=== PATIENT | female | born 1955 | race Caucasian/White ===

== ENCOUNTER 2016-05-02 16:53 | Inpatient (IN) ==
[~2016-05-02 16:53] MED LIST: *HR* Etomidate 20 MG/10 ML AMPUL IVP ONE; *HR* Rocuronium Bromide 50 MG/5 ML VIAL IVC ONE
[2016-05-02] MEDS ORDERED: Propofol 500 MG/50 ML INFUS..BTL ONE (17:09)
[2016-05-02] MEDS ORDERED: Propofol 500 MG/50 ML INFUS..BTL IVC SCH (17:15)
--- NOTE | 2016-05-02 17:16 | Emergency Department Note ---
START Narrative - START START: I examined this patient and my medical decision-making was reviewed with the ORDER CHECKER PACKER PROCESSER/PA/Advanced Practice Nurse/Resident Physician. I agree with the documented findings, disposition and treatment plan as described except to the extent set forth below. ED attending note: Patient seen with emergency medicine resident Dr. Mcguire. Please see a copy of his note for details of the H&P, evaluation, management and disposition of this patient. We independently had [id number] contact with the patient Briefly: 60-year-old female full code by EMS from local [facility] for respiratory distress/arrest. Patient came in in the end stages of respiratory distress from COPD flare at this point which is presumed. Eyes rolling back to the head with decreasing respiratory drive at [place] decreasing sats. Dr. Mcguire emergently performed rapid sequence and abduction intubation. Using a 7.0 endotracheal tube first attempt using direct sedation was unsuccessful secondary attempt using a kaleidoscope was successful with position confirmed both by auscultation and end-tidal CO2 detector. Labs EKG portable chest x-ray pending. ICU admission anticipated. Provided 45 minutes of critical care services for this patient at exclusion of separately billable services such as intubation. Patient critical, prognosis uncertain.
[2016-05-02] MEDS ORDERED: Levofloxacin 750 MG/150 ML 750 MG/150 ML BAG IVPB ONE (17:20)
[2016-05-02] MEDS ORDERED: Vancomycin 1,000 MG in D5% in Water 250 ML IVPB ONE (17:20)
[2016-05-02] MEDS ORDERED: Cefepime HCl 1,000 MG in D5% in Water (Mini-Bag+) 100 ML IVPB ONE (17:21)
[2016-05-02 17:32] LABS: Bilirubin,Urine Small (Negative); Blood,Urine Large (Negative); Clarity,Urine Turbid (Clear); Color,Urine Dark Yellow (Yellow); Glucose,Urine (UA) Normal (Normal); Ketones,Urine Negative (Negative); Leukocyte Esterase,Urine Negative (Negative); Nitrite,Urine Negative (Negative); PH,Urine 5.5 pH Units (5.0-8.0); Protein,Urine 100 mg/dL (Neg-Trace); Specific Gravity,Urine 1.016 (1.010-1.025); Urobilinogen,Urine Normal (Normal)
[2016-05-02] MEDS: 0.9 % Sodium Chloride 1,000 ML IVC SCH ×2 (17:33→21:32)
--- NOTE | 2016-05-02 17:33 | Emergency Department Note ---
Disposition Clinical Impression: Respiratory acidosis Respiratory failure Qualifiers: Chronicity: acute Respiratory failure complication: hypoxia Qualified Code(s): J96.01 - Acute respiratory failure with hypoxia Sepsis Qualifiers: Sepsis type: sepsis due to unspecified organism Qualified Code(s): A41.9 - Sepsis, unspecified organism Pneumonia Qualifiers: Pneumonia type: due to unspecified organism Laterality: unspecified laterality Lung location: unspecified part of lung Qualified Code(s): J18.9 - Pneumonia, unspecified organism Disposition: Admitted As Inpatient Condition: Critical Referrals: NO,PCP [Primary Care Provider] - Forms: ED Satisfaction Letter General Adult HPI - General Chief complaint: ED Shortness of Breath/Dyspnea Stated complaint: SOB/FILIBERTO Time Seen by Provider: 05/02/16 17:09 Source: EMS Mode of arrival: EMS Limitations: no limitations Nursing Notes Reviewed: Yes Vital Signs Reviewed: Yes - History of Present Illness HPI Narrative: 60-year-old female from a local nursing facility who reportedly was diagnosed with pneumonia this morning and started on Levaquin. According to EMS report she had a relatively rapid decompensation of her respiratory function and on checking her SPO2 it was 70%. She was in respiratory distress on the ride over. [facility] due to inability to care for herself with dementia. It appears the only medications that she takes are omeprazole, tramadol, hydroxychloroquine, Levaquin. She was initially able to nod her head to answer questions but could not answer. She indicated she is a full code and that she would like to be intubated if needed. Pain Scale: 0 Consistency: constant Improves with: nothing Worsens with: nothing Treatments Prior to Arrival: none - Related Data Home Medications Medication Instructions Recorded Confirmed Acetaminophen [Tylenol] 500 mg PO TID PRN 05/02/16 05/02/16 Calcium Carbonate/Vitamin D3 1 each PO DAILY 05/02/16 05/02/16 [Calcium 600-Vit D3 400 Tablet] GuaiFENesin/Dextromethorphan 5 ml PO Q6H 05/02/16 05/02/16 [Tussin Dm Syrup] HYDROcodone/Acet 5/325 mg [[place] 1 tab PO Q6H 05/02/16 05/02/16 5-325 mg] Hydroxychloroquine [Plaquenuil] 200 mg PO DAILY 05/02/16 05/02/16 Levofloxacin [Levofloxacin] 500 mg PO DAILY 05/02/16 05/02/16 OLANZapine [Olanzapine] 2.5 mg PO QAM 05/02/16 05/02/16 Omeprazole [PriLOSEC] 20 mg PO DAILY 05/02/16 05/02/16 TraMADol [Ultram] 50 mg PO TID 05/02/16 05/02/16 Tramadol HCl [Tramadol HCl] 50 mg PO Q4H PRN 05/02/16 05/02/16 Allergies Allergy/AdvReac Type Severity Reaction Status Date / Time Penicillins Allergy Hives Verified 11/03/15 02:06 Limitations: ROS unobtainable due to patients medical condition Past Medical History - Past Medical History Medical history: Reports: arthritis, COPD, CVA, dementia, GERD, hypertension, liver disease, RA Surgical history: Reports: hip replacement, hysterectomy, knee replacement, orthopedic, other (Bilateral patellar replacement), other (IVC filter) Psychiatric history: Reports: schizophrenia SENIOR COMPUTER SPECIALIST history: Reports: no SENIOR COMPUTER SPECIALIST history, bilateral tubal ligation - Social History Smoking Status: Former smoker Smokeless Tobacco Status: No Alcohol use: Reports: none Drug use: Reports: none Physical Exam - General Limitations: no limitations General appearance: alert, in distress - Head Head exam: atraumatic - Eye Eye exam: Present: normal appearance - ENT ENT exam: normal exam - Neck Neck exam: Present: normal inspection - Chest Chest inspection: Present: normal inspection - Respiratory Respiratory exam: Present: other (Respiratory distress with tachypnea and coarse lung sounds on the left. Accessory muscle use. No significant wheezes are present.) - Cardiovascular Cardiovascular exam: Present: normal rhythm, tachycardia - Abdominal Exam Abdominal exam: Present: soft, Non-Tender - Extremities Exam Extremities exam: Present: normal inspection - Psychiatric Psychiatric exam: Present: anxious - Skin Skin exam: Present: warm, dry Course Course Narrative: Due to the respiratory distress she was immediately intubated on arrival. Her SPO2 on a nonrebreather was in the 80s and she was fatigued and slowing down. I have concern for sepsis and I have initiated empiric antibiotic's and a 30 mils perkg bolus of saline. Physical exam otherwise unrevealing. She was intubated with 2 attempts. Central line placed by myself. Blood draw performed by myself. - Reevaluation(s) Reevaluation #1: HR continues to improve. O2 sats are still 100% while on 50% FIO2. Minimal vent settings otherwise. Antibiotics are all going. Accepted by Jim to the ICU. BP maintains stable at 115 systolic. She is in improved condition. Vital Signs Temperature 99.0 F 05/02/16 16:54 Pulse Rate 119 05/02/16 16:54 Respiratory Rate 38 05/02/16 16:54 Blood Pressure 155/101 05/02/16 16:54 O2 Sat by Pulse Oximetry 86 L 05/02/16 16:54 Temperature 97.1 F L 05/02/16 17:32 Pulse Rate 119 05/02/16 16:54 Respiratory Rate 12 05/02/16 17:07 Blood Pressure 146/88 05/02/16 17:07 O2 Sat by Pulse Oximetry 100 05/02/16 17:28 Oxygen Delivery Oxygen Delivery Aerosol Mask Procedures - Central Line Placement Left IJ Central Line Inserted*: Yes Central Line Insertion: emergent Procedural Pause: assemble equipment and verify supplies, perform hand hygiene Patient Placed on Monitor/Pulse Ox: Yes During the Procedure: clinician is wearing sterile gloves, cap, mask,& gown during insertion, sterile field and sterile technique are maintained, patient's face is covered with drape or mask and wearing a cap, everyone in room is wearing a mask Central Line Prep: Chlorhexidine scrub Prep the Procedure Site: apply chloraprep to the skin using a back and forth scrubbing motion, apply chloraprep for 30 seconds (upper body), 1-2 min ( femoral sites), allow prep to dry, drape the patient with a full body drape Local Anesthetic: lidocaine 1% Amount of anesthesia used (mL): 2 Ultrasound Used for Placement: Yes Central Line Lumen Inserted: triple Post Procedure: sutured in place, good blood return, all ports aspirated, flushed, capped, sterile dressing applied, guide wire removed and visualized Post Procedure X-Ray: tip of catheter in good position, no pneumothorax seen Patient Tolerated Procedure: well, no complications Complications: none - Intubation sedative: Etomidate paralytic: Rocuronium Laryngoscope: Kline (4) ET Tube Size: 7 ET Tube Uncuffed: No Tube Secured Depth (cm): 23 Tube Secured Location: lips Tube Placement Confirmation: visualized tube passing through cords, equal breath sounds bilaterally, no breath sounds over epigastrium, confirmation by capnometry Patient Tolerated Procedure: no complications Medical Decision Making - Medical Records Medical records reviewed: Yes I reviewed the patient's medical records. - Lab Data Result diagrams: 05/02/16 17:44 Lab Results 05/02/16 05/02/16 05/02/16 Range/Units 17:25 17:44 17:44 PT 12.3 H (9.4-12.1) Seconds INR 1.1 APTT 46.7 H (26.0-36.0) Seconds Sodium 132 L (136-145) mEq/L Potassium 4.4 (3.5-4.5) mEq/L Chloride 105 (98-109) mEq/L Carbon Dioxide 15 L (19-29) mEq/L BUN 14 (7-20) mg/dL Creatinine 0.61 (0.57-1.11) mg/dL Est GFR ( Amer) > 60 (> 60) Est GFR (Non-Af Amer) > 60 (> 60) BUN/Creatinine Ratio 23 (6-26) Glucose 138 H (70-99) mg/dL Calculated Osmolality 277 L (280-300) Calcium 9.1 (8.6-10.8) mg/dL Urine Color Dark Yellow (Yellow) Urine Clarity Turbid A (Clear) Urine pH 5.5 (5.0-8.0) pH Units Ur Specific [place] 1.016 (1.010-1.025) Urine Protein 100 H (Neg-Trace) mg/dL Urine Glucose (UA) Normal (Normal) mg/dL Urine Ketones Negative (Negative) mg/dL Urine Blood Large H (Negative) Urine Nitrite Negative (Negative) Urine Bilirubin Small H (Negative) Urine Urobilinogen Normal (Normal) mg/dL Ur Leukocyte Esterase Negative (Negative) Urine Microscopic RBC TNTC H (0-3) per hpf Urine Microscopic WBC 3-5 H (0-3) per hpf Ur Squamous Epith Cells Many H (None-Few) per lpf Ur Renal Epithelial Cell Few (None-Few) per hpf Urine Bacteria None Seen (None-Few) per hpf Hyaline Casts Many H (None-Few) per lpf Ur Culture Indicated? NO (NO)
[2016-05-02 17:34] LABS: Bacteria,Urine None Seen per hpf (None-Few); RBC,Urine TNTC per hpf (0-3); Squamous Epithelial Cell,Urine Many per lpf (None-Few)
[2016-05-02 17:44] LABS: Hyaline Casts,Urine Many per lpf (None-Few); Renal Epithelial Cells,Urine Few per hpf (None-Few)
[2016-05-02 18:00] LABS: INR 1.1; Prothrombin Time 12.3 Seconds (9.4-12.1)
[2016-05-02 18:03] LABS: Activated Partial Thrombo Time 46.7 Seconds (26.0-36.0)
[2016-05-02 18:09] LABS: BUN/Creatinine Ratio 23 (6-26); Blood Urea Nitrogen 14 mg/dL (7-20); Calcium 9.1 mg/dL (8.6-10.8); Carbon Dioxide 15 mEq/L (19-29); Chloride 105 mEq/L (98-109); Glucose 138 mg/dL (70-99); Osmolality,Calculated 277 (280-300); Potassium 4.4 mEq/L (3.5-4.5); Sodium 132 mEq/L (136-145); eGFR For African Americans > 60 (> 60); eGFR For Non-African Americans > 60 (> 60)
[2016-05-02 18:11] LABS: Albumin 2.6 g/dL (3.5-5.0); Albumin/Globulin Ratio 0.4 (1.1-2.2); Bilirubin,Direct 1.7 mg/dL (0.0-0.5); Bilirubin,Indirect 0.5 mg/dL (0.0-1.2); Bilirubin,Total 2.2 mg/dL (0.2-1.2); Globulin 6.4 g/dL (2.4-3.5); Magnesium 1.7 mg/dL (1.6-2.6); Phosphorous 5.1 mg/dL (2.3-4.7)
[2016-05-02 18:11] LABS: Hematocrit 36.4 % (35.3-44.9); Mean Corpuscular HGB Conc 30.2 g/dL (31.6-35.5); Mean Corpuscular Hemoglobin 27.5 pg (28.0-33.3); Platelet Count 238 K/mcL (140-400); Red Cell Distribution Width 14.7 % (11.5-14.5)
[2016-05-02 18:12] LABS: VBG HCO3 19.4 mEq/L (21-27)
[2016-05-02 18:13] LABS: VBG PH 7.07 pH Units (7.32-7.42)
[2016-05-02 18:22] LABS: ABG Base Excess -10.7 mEq/L (-2.0 to 3.0); ABG HCO3 19.9 mEQ/L (21-27); ABG Oxygen Saturation 88 % (95-98); ABG PCO2 67 mmHg (35-45); ABG PO2 76 mmHg (85-104)
[2016-05-02 18:23] LABS: Blood Gas FiO2 50 %
[2016-05-02 18:24] LABS: ABG PH 7.08 pH Units (7.32-7.45)
[2016-05-02 18:38] LABS: Eosinophils # 0.5 K/mcL (0.0-0.6); Lymphocytes # 0.5 K/mcL (0.6-4.6); Monocytes # 0.8 K/mcL (0.0-1.3); Neutrophils # 2.9 K/mcL (1.6-8.9)
[2016-05-02 18:40] LABS: Platelet Estimate Normal (Normal)
[2016-05-02 19:05] LABS: ABG Base Excess -10.3 mEq/L (-2.0 to 3.0); ABG HCO3 18.2 mEQ/L (21-27); ABG Oxygen Saturation 87 % (95-98); ABG PCO2 51 mmHg (35-45); ABG PO2 68 mmHg (85-104); ABG TCO2 19.8 mEq/L (20-26); Blood Gas FiO2 50 %
[2016-05-02 19:06] LABS: ABG PH 7.16 pH Units (7.32-7.45)
[2016-05-02] MEDS ORDERED: *HR* Midazolam HCl 2 MG/2 ML VIAL IVP ONE (19:18)
[2016-05-02] MEDS ORDERED: *HR* Midazolam HCl 2 MG/2 ML VIAL ONE (19:24)
[2016-05-02] MEDS ORDERED: Naloxone 0.4 MG/ML INJ IVP PRN (20:39)
[2016-05-02] MEDS ORDERED: Lacri-Lube 3.5 GM TUBE BOTH EYES PRN (20:43)
[2016-05-02] MEDS ORDERED: 0.9 % Sodium Chloride 1,000 ML ONE (21:07)
[2016-05-02] MEDS ORDERED: 0.9 % Sodium Chloride 500 ML ONE (21:12)
--- NOTE | 2016-05-02 21:17 | Internal Med History&Physical ---
Date of Encounter: 05/02/16 Time of Encounter: 20:10 Assessment and Plan (1) Acute respiratory distress syndrome (ARDS) Current visit: Yes Status: Acute Patient has pulmonary opacities consistent with pulmonary edema on chest x-ray. BNP is normal. CVP is 6 - will Keep CVP at 4-8. PaO2/FiO2 is 295 (Mild ARDS per Tyler criteria). Start on low tidal volume ventilation, with 6 ml/Kg. Treat suspected pneumonia with antibiotics. Will request pulmonary consultation for further management (2) Acute respiratory failure Current visit: Yes Status: Acute Due to pneumonia/ARDS/pulmonary edema. Patient is intubated and is on mechanical ventilation. Qualifiers: Respiratory failure complication: hypoxia and hypercapnia Qualified Code(s) : J96.01 - Acute respiratory failure with hypoxia; J96.02 - Acute respiratory failure with hypercapnia (3) Pneumonia Current visit: Yes Status: Acute Will treat her for healthcare associated pneumonia. Patient is on levofloxacin , cefepime and vancomycin. Vancomycin dosing per pharmacy. Requested sputum cultures / blood cultures. CRP and procalcitonin requested. Qualifiers: Pneumonia type: due to unspecified organism Laterality: right Lung location: lower lobe of lung Qualified Code(s): J18.1 - Lobar pneumonia, unspecified organism (4) Sepsis Current visit: Yes Status: Acute Secondary to pneumonia. Treat with antibiotics Qualifiers: Sepsis type: sepsis due to unspecified organism Qualified Code(s): A41.9 - Sepsis, unspecified organism (5) Rheumatoid arthritis involving both hands with positive rheumatoid factor Current visit: Yes Status: Chronic Will resume home medications (6) Acidosis, metabolic, with respiratory acidosis Current visit: Yes Status: Acute (7) Abnormal LFTs Current visit: Yes Status: Chronic Pt has chronic elevation of Alkaline phosphatase - possibly related to RA. Monitor (8) DVT prophylaxis Current visit: Yes Status: Acute subQ Heparin Internal Medicine - H&P: HPI Chief complaint: Shortness of breath Admitted From: Emergency Dept Plans for Post Hospital Care: [facility] [employer] [facility] History of present illness: Ms. Leon is a 60-year-old female with PMH significant for COPD, CVA, dementia , schizophrenia, GERD, hypertension, liver disease, RA and a resident of long term. She is intubated and mechanically ventilated at the time of my evaluation and is not able to give clinical details. Per the ER note, was diagnosed to have pneumonia earlier in the day and started on Levaquin. . According to EMS report she had a relatively rapid decompensation of her respiratory function and on checking her SPO2 it was 70%. In the ER, She was intubated and started on mechanical ventilation. She was given Levaquin, vancomycin, and cefepime for suspected pneumonia. She is admitted to intensive care unit, for further management. Pt is critically ill and critical care time spent for assessment/management and stabilization is about 65 minutes Past Med Surg Social Fam HX - Past Medical History Medical history: arthritis, COPD, CVA, dementia, GERD, hypertension, liver disease, RA Psychiatric history: schizophrenia - Past Surgical History Surgical History: hip replacement, hysterectomy, knee replacement, orthopedic, other (Bilateral patellar replacement), other (IVC filter) - Social History Smoking Status: Former smoker Smokeless Tobacco Status: No Alcohol use: none Drug use: none - Family History Mother Adopted: No Living Status: Father Adopted: No Living Status: Internal Medicine - H&P: Meds Acetaminophen [Tylenol] 500 mg PO TID PRN 05/02/16 [History] Calcium Carbonate/Vitamin D3 [Calcium 600-Vit D3 400 Tablet] 1 each PO DAILY 12/08 [History] GuaiFENesin/Dextromethorphan [Tussin Dm Syrup] 5 ml PO Q6H 05/02/16 [History] HYDROcodone/Acet 5/325 mg [[place] 5-325 mg] 1 tab PO Q6H 05/02/16 [History] Hydroxychloroquine [Plaquenuil] 200 mg PO DAILY 05/02/16 [History] Levofloxacin [Levofloxacin] 500 mg PO DAILY 05/02/16 [History] OLANZapine [Olanzapine] 2.5 mg PO QAM 05/02/16 [History] Omeprazole [PriLOSEC] 20 mg PO DAILY 05/02/16 [History] TraMADol [Ultram] 50 mg PO TID 05/02/16 [History] Tramadol HCl [Tramadol HCl] 50 mg PO Q4H PRN 05/02/16 [History] Allergies Penicillins Allergy (Verified 11/03/15 02:06) Hives ROS unobtainable: due to endotracheal tube - Constitutional Vitals: Temp Pulse Resp BP Pulse Ox 97.1 F L 114 15 95/66 94 L 05/02/16 17:32 05/02/16 18:23 05/02/16 19:47 05/02/16 19:47 05/02/16 19:47 Exam: General: Sedated and intubated and is on mechanical ventilation HEENT: intubated and is on mechanical ventilation. No scleral icterus Neck: No obvious neck swellings Lungs: Bilateral air entry present Cardiac: Regular rate and rhythm. No significant murmurs Abdomen: Soft. Bowel sounds present Genitourinary: lafleur catheter present Neurological: Sedated Psych: Sedated Extremities: Multiple deformities of the fingers and toes - suggestive of rheumatoid arthritis. Multiple scratch church on both lower extremities Skin: Multiple scratch church on both lower extremities Internal Med - H&P Results - Labs CBC & Chem 7: 05/03/16 05:15 05/03/16 05:15 Labs: Laboratory Results - last 24 hr 05/02/16 05/02/16 05/02/16 17:25 17:44 17:44 WBC RBC Hgb Hct MCV MCH MCHC RDW Plt Count MPV Seg Neutrophils % Band Neutrophils % Lymphocytes % Monocytes % Eosinophils % Metamyelocytes % Myelocytes % Neutrophils # Lymphocytes # Monocytes # Eosinophils # Platelet Estimate PT INR APTT ABG pH ABG pCO2 ABG pO2 ABG HCO3 ABG Total CO2 ABG O2 Saturation ABG Base Excess VBG pH VBG pCO2 VBG pO2 VBG HCO3 Blood Gas Modality Inspired O2 Sodium 132 L Potassium 4.4 Chloride 105 Carbon Dioxide 15 L BUN 14 Creatinine 0.61 Est GFR ( Amer) > 60 Est GFR (Non-Af Amer) > 60 BUN/Creatinine Ratio 23 Glucose 138 H Calculated Osmolality 277 L Lactic Acid Calcium 9.1 Phosphorus Magnesium Total Bilirubin Direct Bilirubin Indirect Bilirubin AST ALT Alkaline Phosphatase Troponin I 0.03 C-Reactive Protein B-Natriuretic Peptide Serum Total Protein Albumin Globulin Albumin/Globulin Ratio Urine Color Dark Yellow Urine Clarity Turbid A Urine pH 5.5 Ur Specific [place] 1.016 Urine Protein 100 H Urine Glucose (UA) Normal Urine Ketones Negative Urine Blood Large H Urine Nitrite Negative Urine Bilirubin Small H Urine Urobilinogen Normal Ur Leukocyte Esterase Negative Urine Microscopic RBC TNTC H Urine Microscopic WBC 3-5 H Ur Squamous Epith Cells Many H Ur Renal Epithelial Cell Few Urine Bacteria None Seen Hyaline Casts Many H Ur Culture Indicated? NO 05/02/16 05/02/16 05/02/16 17:44 17:44 17:44 WBC RBC Hgb Hct MCV MCH MCHC RDW Plt Count MPV Seg Neutrophils % Band Neutrophils % Lymphocytes % Monocytes % Eosinophils % Metamyelocytes % Myelocytes % Neutrophils # Lymphocytes # Monocytes # Eosinophils # Platelet Estimate PT 12.3 H INR 1.1 APTT 46.7 H ABG pH ABG pCO2 ABG pO2 ABG HCO3 ABG Total CO2 ABG O2 Saturation ABG Base Excess VBG pH VBG pCO2 VBG pO2 VBG HCO3 Blood Gas Modality Inspired O2 Sodium Potassium Chloride Carbon Dioxide BUN Creatinine Est GFR ( Amer) Est GFR (Non-Af Amer) BUN/Creatinine Ratio Glucose Calculated Osmolality Lactic Acid Calcium Phosphorus 5.1 H Magnesium 1.7 Total Bilirubin 2.2 H Direct Bilirubin 1.7 H Indirect Bilirubin 0.5 AST 47 H ALT 33 Alkaline Phosphatase 1448 H Troponin I C-Reactive Protein 53 H B-Natriuretic Peptide Serum Total Protein 9.0 H Albumin 2.6 L Globulin 6.4 H Albumin/Globulin Ratio 0.4 L Urine Color Urine Clarity Urine pH Ur Specific [place] Urine Protein Urine Glucose (UA) Urine Ketones Urine Blood Urine Nitrite Urine Bilirubin Urine Urobilinogen Ur Leukocyte Esterase Urine Microscopic RBC Urine Microscopic WBC Ur Squamous Epith Cells Ur Renal Epithelial Cell Urine Bacteria Hyaline Casts Ur Culture Indicated? 05/02/16 05/02/16 05/02/16 18:00 18:08 18:08 WBC 4.8 RBC 4.00 Hgb 11.0 L Hct 36.4 MCV 91.0 MCH 27.5 L MCHC 30.2 L RDW 14.7 H Plt Count 238 MPV 9.0 L Seg Neutrophils % 47.0 Band Neutrophils % 13.0 H Lymphocytes % 11.0 Monocytes % 16.0 Eosinophils % 11.0 Metamyelocytes % 1.0 H Myelocytes % 1.0 H Neutrophils # 2.9 Lymphocytes # 0.5 L Monocytes # 0.8 Eosinophils # 0.5 Platelet Estimate Normal PT INR APTT ABG pH ABG pCO2 ABG pO2 ABG HCO3 ABG Total CO2 ABG O2 Saturation ABG Base Excess VBG pH 7.07 L* VBG pCO2 67 H VBG pO2 66 H VBG HCO3 19.4 L Blood Gas Modality Inspired O2 Sodium Potassium Chloride Carbon Dioxide BUN Creatinine Est GFR ( Amer) Est GFR (Non-Af Amer) BUN/Creatinine Ratio Glucose Calculated Osmolality Lactic Acid 1.6 Calcium Phosphorus Magnesium Total Bilirubin Direct Bilirubin Indirect Bilirubin AST ALT Alkaline Phosphatase Troponin I C-Reactive Protein B-Natriuretic Peptide Serum Total Protein Albumin Globulin Albumin/Globulin Ratio Urine Color Urine Clarity Urine pH Ur Specific [place] Urine Protein Urine Glucose (UA) Urine Ketones Urine Blood Urine Nitrite Urine Bilirubin Urine Urobilinogen Ur Leukocyte Esterase Urine Microscopic RBC Urine Microscopic WBC Ur Squamous Epith Cells Ur Renal Epithelial Cell Urine Bacteria Hyaline Casts Ur Culture Indicated? 05/02/16 05/02/16 05/02/16 18:08 18:17 18:58 WBC RBC Hgb Hct MCV MCH MCHC RDW Plt Count MPV Seg Neutrophils % Band Neutrophils % Lymphocytes % Monocytes % Eosinophils % Metamyelocytes % Myelocytes % Neutrophils # Lymphocytes # Monocytes # Eosinophils # Platelet Estimate PT INR APTT ABG pH 7.08 L* 7.16 L* ABG pCO2 67 H 51 H ABG pO2 76 L 68 L ABG HCO3 19.9 L 18.2 L ABG Total CO2 22.0 19.8 L ABG O2 Saturation 88 L 87 L ABG Base Excess -10.7 L -10.3 L VBG pH VBG pCO2 VBG pO2 VBG HCO3 Blood Gas Modality VC+ VC+ Inspired O2 50 50 Sodium Potassium Chloride Carbon Dioxide BUN Creatinine Est GFR ( Amer) Est GFR (Non-Af Amer) BUN/Creatinine Ratio Glucose Calculated Osmolality Lactic Acid Calcium Phosphorus Magnesium Total Bilirubin Direct Bilirubin Indirect Bilirubin AST ALT Alkaline Phosphatase Troponin I C-Reactive Protein B-Natriuretic Peptide 92 Serum Total Protein Albumin Globulin Albumin/Globulin Ratio Urine Color Urine Clarity Urine pH Ur Specific [place] Urine Protein Urine Glucose (UA) Urine Ketones Urine Blood Urine Nitrite Urine Bilirubin Urine Urobilinogen Ur Leukocyte Esterase Urine Microscopic RBC Urine Microscopic WBC Ur Squamous Epith Cells Ur Renal Epithelial Cell Urine Bacteria Hyaline Casts Ur Culture Indicated? 05/02/16 21:26 WBC RBC Hgb Hct MCV MCH MCHC RDW Plt Count MPV Seg Neutrophils % Band Neutrophils % Lymphocytes % Monocytes % Eosinophils % Metamyelocytes % Myelocytes % Neutrophils # Lymphocytes # Monocytes # Eosinophils # Platelet Estimate PT INR APTT ABG pH 7.34 D ABG pCO2 35 ABG pO2 177 H ABG HCO3 18.9 L ABG Total CO2 20.0 ABG O2 Saturation 100 H ABG Base Excess -6.2 L VBG pH VBG pCO2 VBG pO2 VBG HCO3 Blood Gas Modality VENT Inspired O2 60 Sodium Potassium Chloride Carbon Dioxide BUN Creatinine Est GFR ( Amer) Est GFR (Non-Af Amer) BUN/Creatinine Ratio Glucose Calculated Osmolality Lactic Acid Calcium Phosphorus Magnesium Total Bilirubin Direct Bilirubin Indirect Bilirubin AST ALT Alkaline Phosphatase Troponin I C-Reactive Protein B-Natriuretic Peptide Serum Total Protein Albumin Globulin Albumin/Globulin Ratio Urine Color Urine Clarity Urine pH Ur Specific [place] Urine Protein Urine Glucose (UA) Urine Ketones Urine Blood Urine Nitrite Urine Bilirubin Urine Urobilinogen Ur Leukocyte Esterase Urine Microscopic RBC Urine Microscopic WBC Ur Squamous Epith Cells Ur Renal Epithelial Cell Urine Bacteria Hyaline Casts Ur Culture Indicated? - ABG Interpretation ABG results: 05/02/16 18:58 ABG pH 7.16 L* ABG pCO2 51 H ABG pO2 68 L ABG HCO3 18.2 L ABG Total CO2 19.8 L ABG O2 Saturation 87 L ABG Base Excess -10.3 L - EKG Data EKG shows normal: sinus rhythm - EKG Data EKG comments: Telemetry shows sinus tachycardia 05/02/16 22:43 - Impressions ITS Impressions Chest X-Ray 05/02/16 17:10 IMPRESSION: 1. Tube and line positioning as discussed 2. Bilateral parenchymal lung disease favored to represent edema D/ / Reece Solorzano MD / Reece Solorzano MD Interpreting Provider: Reece Solorzano MD
[2016-05-02] MEDS ORDERED: 0.9 % Sodium Chloride 500 ML IVC ONE (21:33)
[2016-05-02] MEDS: Pantoprazole 40 MG VIAL IVPB SCH (21:36)
[2016-05-02] MEDS: Chlorhexidine Rinse 15 ML MOUTHWASH MM SCH (21:36)
[2016-05-02 21:38] LABS: ABG Base Excess -6.2 mEq/L (-2.0 to 3.0); ABG HCO3 18.9 mEQ/L (21-27); ABG Oxygen Saturation 100 % (95-98); ABG PCO2 35 mmHg (35-45); ABG PH 7.34 pH Units (7.32-7.45); ABG PO2 177 mmHg (85-104)
[2016-05-02 21:39] LABS: Blood Gas FiO2 60 %
[2016-05-02] MEDS ORDERED: 0.9 % Sodium Chloride 1,000 ML IVC SCH (21:45)
[2016-05-02] MEDS ORDERED: Vancomycin 1,000 MG in D5% in Water 250 ML IVPB SCH (22:00)
[2016-05-02] MEDS: Norepinephrine 4 MG in D5% in Water 250 ML IVC SCH (23:30)
[2016-05-02] MEDS: Lacri-Lube 3.5 GM TUBE BOTH EYES SCH (23:33)
[2016-05-02] MEDS: *HR* Heparin 5,000 UNIT/ML VIAL SQ SCH (23:34)
[2016-05-03 00:21] LABS: ABG Base Excess -6.2 mEq/L (-2.0 to 3.0); ABG HCO3 18.9 mEQ/L (21-27); ABG Oxygen Saturation 99 % (95-98); ABG PCO2 35 mmHg (35-45); ABG PH 7.34 pH Units (7.32-7.45); ABG PO2 154 mmHg (85-104); Blood Gas FiO2 40 %
[2016-05-03] MEDS ORDERED: Furosemide 20 MG/2 ML VIAL IVP ONE ×2 (00:24→00:27)
[2016-05-03] MEDS ORDERED: *HR* FentaNYL (PF) 100 MCG/2 ML VIAL IVP ONE (04:18)
[2016-05-03] MEDS: Lacri-Lube 3.5 GM TUBE BOTH EYES SCH ×5 (04:35→19:20)
[2016-05-03 05:25] LABS: Basophils % 0.4 %; Eosinophils % 0.8 %; Hematocrit 32.6 % (35.3-44.9); Hemoglobin 10.4 g/dL (11.5-15.4); Immature Granulocytes % 0.8 % (0-4); Lymphocytes # 0.5 K/mcL (0.6-4.6); Lymphocytes % 18.8 %; Mean Corpuscular HGB Conc 31.9 g/dL (31.6-35.5); Mean Corpuscular Hemoglobin 27.7 pg (28.0-33.3); Mean Corpuscular Volume 86.9 fL (83.0-100.0); Mean Platelet Volume 8.8 fL (9.4-12.4); Monocytes # 0.9 K/mcL (0.0-1.3); Monocytes % 32.5 %; Neutrophils # 1.2 K/mcL (1.6-8.9); Platelet Count 238 K/mcL (140-400); Red Blood Count 3.75 M/mcL (3.82-4.97); Red Cell Distribution Width 14.9 % (11.5-14.5); Segmented Neutrophils % 46.7 %
[2016-05-03 05:33] LABS: ABG Base Excess -5.4 mEq/L (-2.0 to 3.0); ABG HCO3 18.9 mEQ/L (21-27); ABG Oxygen Saturation 99 % (95-98); ABG PCO2 32 mmHg (35-45); ABG PH 7.38 pH Units (7.32-7.45); ABG PO2 132 mmHg (85-104); ABG TCO2 19.9 mEq/L (20-26)
[2016-05-03 05:34] LABS: Blood Gas FiO2 30 %
[2016-05-03 05:38] LABS: Alanine Aminotransferase 23 Units/L (0-55); Albumin 2.1 g/dL (3.5-5.0); Albumin/Globulin Ratio 0.4 (1.1-2.2); Alkaline Phosphatase 1115 Units/L (38-126); Aspartate Amino Transferase 43 Units/L (5-34); BUN/Creatinine Ratio 25 (6-26); Bilirubin,Total 2.1 mg/dL (0.2-1.2); Blood Urea Nitrogen 16 mg/dL (7-20); Carbon Dioxide 18 mEq/L (19-29); Chloride 105 mEq/L (98-109); Globulin 5.1 g/dL (2.4-3.5); Glucose 142 mg/dL (70-99); Osmolality,Calculated 278 (280-300); Potassium 3.4 mEq/L (3.5-4.5); Sodium 132 mEq/L (136-145); Total Protein 7.2 g/dL (6.0-8.3); eGFR For African Americans > 60 (> 60); eGFR For Non-African Americans > 60 (> 60)
[2016-05-03 05:41] LABS: Platelet Estimate Normal (Normal)
[2016-05-03] MEDS: FentaNYL (PF) 1,000 MCG in 0.9 % Sodium Chloride 80 ML IVC SCH ×2 (05:53→16:51)
[2016-05-03] MEDS: Vancomycin 1,000 MG in D5% in Water 250 ML IVPB SCH ×2 (05:54→17:00)
[2016-05-03] MEDS: Norepinephrine 4 MG in D5% in Water 250 ML IVC SCH ×3 (05:56→21:05)
[2016-05-03] MEDS ORDERED: Cefepime HCl 2,000 MG in D5% in Water (Mini-Bag+) 100 ML IVPB SCH (06:00)
[2016-05-03] MEDS: *HR* Heparin 5,000 UNIT/ML VIAL SQ SCH ×3 (06:18→22:24)
--- NOTE | 2016-05-03 06:57 | Pulmonology Consult Note ---
<George Jaquez - Last Filed: 05/03/16 13:40> Date of Encounter: 05/03/16 Time of Encounter: 06:57 Assessment and Plan (1) Acute respiratory distress syndrome (ARDS) Current Visit: Yes Status: Acute Patient was diagnosed earlier in the day with pneumonia and started on levaquin. EMS was called due to rapid decompensation in respiratory function and O2 sat of 70%. CXR revealed bilateral hazy parenchymal disease predominantly in the perihilar regions favoring edema. PaO2/FiO2 was 295 Decision to intubate due to respiratory distress and worsening respiratory function. Patient is currently comfortable and sedated on ventilator. Breathing over ventilator at rate of 24. Settings at rate 20, Tv 350mL, FiO2 30%, and PEEP of 5.0. Respiratory viral panel returned positive for Influenza A (h3) Acute respiratory failure secondary to ARDS due to possible HCAP vs confirmed influenza A vs undiagnosed heart failure. Review of medications do not suggest an immunosuppressive agent for RA control. Continue ventilator support. Continue with antibiotics Vancomycin. Oseltamavir bid ordered. Discontinue Levaquin and Cefepime. CT chest without contrast ordered. Echo ordered. (2) Acute respiratory failure Current Visit: Yes Status: Acute Continue per plan in assessment above. Qualifiers: Respiratory failure complication: hypoxia and hypercapnia Qualified Code(s) : J96.01 - Acute respiratory failure with hypoxia; J96.02 - Acute respiratory failure with hypercapnia (3) Pneumonia Current Visit: Yes Status: Acute Patient of custodial facility due to dementia and schizophrenia. Currently on Vancomycin. Discontinue levaquin and cefepime. Qualifiers: Pneumonia type: due to unspecified organism Laterality: right Lung location: lower lobe of lung Qualified Code(s): J18.1 - Lobar pneumonia, unspecified organism (4) Influenza A Current Visit: Yes Status: Acute Patient returned Influenza A (h3) positive. Start Oseltamavir. (5) Sepsis Current Visit: Yes Status: Acute Secondary to pneumonia. Continue with vancomycin and oseltamavir. Titrate off levophed and monitor vitals. Qualifiers: Sepsis type: sepsis due to unspecified organism Qualified Code(s): A41.9 - Sepsis, unspecified organism (6) Rheumatoid arthritis involving both hands with positive rheumatoid factor Current Visit: Yes Status: Chronic Continue hydroxychloroquine. (7) DVT prophylaxis Current Visit: Yes Status: Acute Heparin for dvt ppx. History of Present Illness Consult date: 05/03/16 Requesting physician: Vandana Herman Reason for consult: other (Acute Resp Failure) Chief complaint: Acute Respiratory Failure History of present illness: Ms. Leon is a 60 year old female with history of COPD, previous CVA, dementia , paranoid schizophrenia, GERD, hypertension, unspecified liver disease, and RA who is a resident of a custodial who was diagnosed earlier in the day yesterday with pneumonia and started on Levaquin. EMS was called due to rapid decompensation in respiratory function and O2 sat at 70% and patient was initially able to nod her head to answer. Decision to intubate was made due to respiratory distress and worsening respiratory function. CXR revealed bilateral hazy parenchymal disease predominantely in the perihilar regions favoring possible edema. She was started on Levaquin, Vancomycin, and Cefepime for suspected HCAP. Lasix was also given, with a total of 1500mL urine output overnight. Patient currently sedated and on ventilator this morning, currently breathing over the ventilatory at rate of 24. Restraints in place due to initial inability to keep patient sedated. Past Med Surg Social Fam HX - Past Medical History Medical history: arthritis, COPD, CVA, dementia, GERD, hypertension, liver disease, RA Psychiatric history: schizophrenia - Past Surgical History Surgical History: hip replacement, hysterectomy, knee replacement, orthopedic, other (Bilateral patellar replacement), other (IVC filter) - Social History Smoking Status: Former smoker Smokeless Tobacco Status: No Alcohol use: none Drug use: none - Family History Mother History Unknown: Yes Adopted: No Living Status: Father History Unknown: Yes Adopted: No Living Status: Medications and Allergies Acetaminophen [Tylenol] 500 mg PO TID PRN 05/02/16 [History] Calcium Carbonate/Vitamin D3 [Calcium 600-Vit D3 400 Tablet] 1 each PO DAILY 12/08 [History] GuaiFENesin/Dextromethorphan [Tussin Dm Syrup] 5 ml PO Q6H 05/02/16 [History] HYDROcodone/Acet 5/325 mg [[place]ulah 5-325 mg] 1 tab PO Q6H 05/02/16 [History] Hydroxychloroquine [Plaquenuil] 200 mg PO DAILY 05/02/16 [History] Levofloxacin [Levofloxacin] 500 mg PO DAILY 05/02/16 [History] OLANZapine [Olanzapine] 2.5 mg PO QAM 05/02/16 [History] Omeprazole [PriLOSEC] 20 mg PO DAILY 05/02/16 [History] TraMADol [Ultram] 50 mg PO TID 05/02/16 [History] Tramadol HCl [Tramadol HCl] 50 mg PO Q4H PRN 05/02/16 [History] Allergies Penicillins Allergy (Verified 11/03/15 02:06) Hives ROS unobtainable: due to endotracheal tube All Systems: A 10-system review of systems was performed and is negative for pertinent findings except as documented above in the HPI. Physical Examination Vital Signs: Vital Signs, Last 4 Hours Temp Pulse Resp BP Pulse Ox 05/03/16 06:00 97 29 106/57 100 05/03/16 05:00 98 31 108/59 100 05/03/16 04:57 32 107/59 100 05/03/16 04:14 99.5 F 05/03/16 04:00 99.5 F 98 27 97/56 100 05/03/16 03:00 105 33 105/59 99 General appearance: no acute distress, other (appears comfortable and sedated on ventilator, pupils reactive, no extremity movement or spontaneous eye opening when prompted) Eyes: nonicteric Neck: supple, no lymphadenopathy, no JVD Effort: normal Inspection: normal Auscultation: bilateral: wheezes, rhonchi Cardiovascular: regular rate and rhythm Gastrointestinal: normoactive bowel sounds, soft, non-distended Integumentary: normal Extremities: no cyanosis, no edema, pink and warm, pulses normal Musculoskeletal: other (hand and foot joint changes of RA) non-focal exam Ventilator Settings Ventilator Settings: Ventilator Settings, Last 8 Hours Ventilator Mode VC+ Ventilator Mode VC+ Ventilator Mode VC+ Ventilator Mode VC+ Ventilator Mode VC+ Ventilator Mode VC+ Ventilator Mode VC+ Ventilator Tidal Volume 350 Setting Ventilator Tidal Volume 350 Setting Ventilator Tidal Volume 350 Setting Ventilator Tidal Volume 350 Setting Ventilator Tidal Volume 350 Setting Ventilator Tidal Volume 350 Setting Ventilator Tidal Volume 350 Setting Ventilator Respiratory Rate 20 Setting Ventilator Respiratory Rate 20 Setting Ventilator Respiratory Rate 20 Setting Ventilator Respiratory Rate 20 Setting Ventilator Respiratory Rate 20 Setting Ventilator Respiratory Rate 20 Setting Ventilator Respiratory Rate 20 Setting Actual Respiratory Rate 32 Actual Respiratory Rate 28 Actual Respiratory Rate 29 Actual Respiratory Rate 33 Actual Respiratory Rate 34 Positive End Expiratory 5 Pressure Positive End Expiratory 5 Pressure Positive End Expiratory 5 Pressure Positive End Expiratory 5 Pressure Positive End Expiratory 5 Pressure Positive End Expiratory 5 Pressure Positive End Expiratory 5 Pressure Peak Inspiratory Airway 11 Pressure Peak Inspiratory Airway 11 Pressure Peak Inspiratory Airway 15 Pressure Peak Inspiratory Airway 12 Pressure Peak Inspiratory Airway 20 Pressure Results - Laboratory Findings CBC and BMP: 05/03/16 05:15 05/03/16 05:15 ABG ABG pH 7.38 pH Units (7.32-7.45) 05/03/16 05:25 ABG pCO2 32 mmHg (35-45) L 05/03/16 05:25 ABG pO2 132 mmHg (85-104) H 05/03/16 05:25 ABG O2 Saturation 99 % (95-98) H 05/03/16 05:25 PT/INR, D-dimer PT 12.3 Seconds (9.4-12.1) H 05/02/16 17:44 Abnormal lab findings: Abnormal lab results WBC 2.6 K/mcL (4.3-11.1) L 05/03/16 05:15 RBC 3.75 M/mcL (3.82-4.97) L 05/03/16 05:15 Hgb 10.4 g/dL (11.5-15.4) L 05/03/16 05:15 Hct 32.6 % (35.3-44.9) L 05/03/16 05:15 MCH 27.7 pg (28.0-33.3) L 05/03/16 05:15 RDW 14.9 % (11.5-14.5) H 05/03/16 05:15 MPV 8.8 fL (9.4-12.4) L 05/03/16 05:15 Band Neutrophils % 13.0 % (0-4) H 05/02/16 18:08 Metamyelocytes % 1.0 % (0) H 05/02/16 18:08 Myelocytes % 1.0 % (0) H 05/02/16 18:08 Neutrophils # 1.2 K/mcL (1.6-8.9) L 05/03/16 05:15 Lymphocytes # 0.5 K/mcL (0.6-4.6) L 05/03/16 05:15 PT 12.3 Seconds (9.4-12.1) H 05/02/16 17:44 APTT 46.7 Seconds (26.0-36.0) H 05/02/16 17:44 ABG pCO2 32 mmHg (35-45) L 05/03/16 05:25 ABG pO2 132 mmHg (85-104) H 05/03/16 05:25 ABG HCO3 18.9 mEQ/L (21-27) L 05/03/16 05:25 ABG Total CO2 19.9 mEq/L (20-26) L 05/03/16 05:25 ABG O2 Saturation 99 % (95-98) H 05/03/16 05:25 ABG Base Excess -5.4 mEq/L (-2.0 to 3.0) L 05/03/16 05:25 VBG pH 7.07 pH Units (7.32-7.42) L* 05/02/16 18:00 VBG pCO2 67 mmHg (41-51) H 05/02/16 18:00 VBG pO2 66 mmHg (25-40) H 05/02/16 18:00 VBG HCO3 19.4 mEq/L (21-27) L 05/02/16 18:00 Sodium 132 mEq/L (136-145) L 05/03/16 05:15 Potassium 3.4 mEq/L (3.5-4.5) L D 05/03/16 05:15 Carbon Dioxide 18 mEq/L (19-29) L 05/03/16 05:15 Glucose 142 mg/dL (70-99) H 05/03/16 05:15 POC Glucose 265 (58-89) H 05/02/16 19:37 Calculated Osmolality 278 (280-300) L 05/03/16 05:15 Calcium 8.0 mg/dL (8.6-10.8) L 05/03/16 05:15 Phosphorus 5.1 mg/dL (2.3-4.7) H 05/02/16 17:44 Total Bilirubin 2.1 mg/dL (0.2-1.2) H 05/03/16 05:15 Direct Bilirubin 1.7 mg/dL (0.0-0.5) H 05/02/16 17:44 AST 43 Units/L (5-34) H 05/03/16 05:15 Alkaline Phosphatase 1115 Units/L (38-126) H 05/03/16 05:15 C-Reactive Protein 53 mg/L (Less than 5) H 05/02/16 17:44 Albumin 2.1 g/dL (3.5-5.0) L 05/03/16 05:15 Globulin 5.1 g/dL (2.4-3.5) H 05/03/16 05:15 Albumin/Globulin Ratio 0.4 (1.1-2.2) L 05/03/16 05:15 Urine Clarity Turbid (Clear) A 05/02/16 17:25 Urine Protein 100 mg/dL (Neg-Trace) H 05/02/16 17:25 Urine Blood Large (Negative) H 05/02/16 17:25 Urine Bilirubin Small (Negative) H 05/02/16 17:25 Urine Microscopic RBC TNTC per hpf (0-3) H 05/02/16 17:25 Urine Microscopic WBC 3-5 per hpf (0-3) H 05/02/16 17:25 Ur Squamous Epith Cells Many per lpf (None-Few) H 05/02/16 17:25 Hyaline Casts Many per lpf (None-Few) H 05/02/16 17:25 - Clinical Findings Intake & Output: Intake & Output 05/02/16 05/02/16 05/03/16 15:59 23:59 07:59 Intake Total 1305 / 2305 649 / 649 Output Total 650 / 650 Balance 1305 / 2305 -1 / -1 Weight 57.742 kg 57.742 kg Consult Discharge Plan - Plan Referrals: NO,PCP [Primary Care Provider] - <Chris Camargo W - Last Filed: 05/03/16 15:55> Date of Encounter: 05/03/16 All Systems: A 10-system review of systems was performed and is negative for pertinent findings except as documented above in the HPI. Physical Examination Vital Signs: Vital Signs, Last 4 Hours Temp Pulse Resp BP Pulse Ox 05/03/16 09:00 97.0 F L 89 21 107/56 100 05/03/16 07:57 97.0 F L 90 24 107/57 100 05/03/16 07:26 25 100 05/03/16 07:20 97.0 F L 05/03/16 06:00 97 29 106/57 100 Ventilator Settings Ventilator Settings: Ventilator Settings, Last 8 Hours Ventilator Mode VC+ Ventilator Mode VC+ Ventilator Mode VC+ Ventilator Mode VC+ Ventilator Mode VC+ Ventilator Mode VC+ Ventilator Mode VC+ Ventilator Mode VC+ Ventilator Tidal Volume 350 Setting Ventilator Tidal Volume 350 Setting Ventilator Tidal Volume 350 Setting Ventilator Tidal Volume 350 Setting Ventilator Tidal Volume 350 Setting Ventilator Tidal Volume 350 Setting Ventilator Tidal Volume 350 Setting Ventilator Tidal Volume 350 Setting Ventilator Respiratory Rate 20 Setting Ventilator Respiratory Rate 20 Setting Ventilator Respiratory Rate 20 Setting Ventilator Respiratory Rate 20 Setting Ventilator Respiratory Rate 20 Setting Ventilator Respiratory Rate 20 Setting Ventilator Respiratory Rate 20 Setting Ventilator Respiratory Rate 20 Setting Actual Respiratory Rate 21 Actual Respiratory Rate 24 Actual Respiratory Rate 24 Actual Respiratory Rate 22 Actual Respiratory Rate 32 Actual Respiratory Rate 28 Actual Respiratory Rate 29 Positive End Expiratory 5 Pressure Positive End Expiratory 5 Pressure Positive End Expiratory 5 Pressure Positive End Expiratory 5 Pressure Positive End Expiratory 5 Pressure Positive End Expiratory 5 Pressure Positive End Expiratory 5 Pressure Positive End Expiratory 5 Pressure Peak Inspiratory Airway 11 Pressure Peak Inspiratory Airway 11 Pressure Peak Inspiratory Airway 11 Pressure Peak Inspiratory Airway 11 Pressure Peak Inspiratory Airway 11 Pressure Peak Inspiratory Airway 11 Pressure Peak Inspiratory Airway 15 Pressure Results - Laboratory Findings CBC and BMP: 05/03/16 05:15 05/03/16 05:15 ABG ABG pH 7.38 pH Units (7.32-7.45) 05/03/16 05:25 ABG pCO2 32 mmHg (35-45) L 05/03/16 05:25 ABG pO2 132 mmHg (85-104) H 05/03/16 05:25 ABG O2 Saturation 99 % (95-98) H 05/03/16 05:25 PT/INR, D-dimer PT 12.3 Seconds (9.4-12.1) H 05/02/16 17:44 Abnormal lab findings: Abnormal lab results WBC 2.6 K/mcL (4.3-11.1) L 05/03/16 05:15 RBC 3.75 M/mcL (3.82-4.97) L 05/03/16 05:15 Hgb 10.4 g/dL (11.5-15.4) L 05/03/16 05:15 Hct 32.6 % (35.3-44.9) L 05/03/16 05:15 MCH 27.7 pg (28.0-33.3) L 05/03/16 05:15 RDW 14.9 % (11.5-14.5) H 05/03/16 05:15 MPV 8.8 fL (9.4-12.4) L 05/03/16 05:15 Band Neutrophils % 13.0 % (0-4) H 05/02/16 18:08 Metamyelocytes % 1.0 % (0) H 05/02/16 18:08 Myelocytes % 1.0 % (0) H 05/02/16 18:08 Neutrophils # 1.2 K/mcL (1.6-8.9) L 05/03/16 05:15 Lymphocytes # 0.5 K/mcL (0.6-4.6) L 05/03/16 05:15 PT 12.3 Seconds (9.4-12.1) H 05/02/16 17:44 APTT 46.7 Seconds (26.0-36.0) H 05/02/16 17:44 ABG pCO2 32 mmHg (35-45) L 05/03/16 05:25 ABG pO2 132 mmHg (85-104) H 05/03/16 05:25 ABG HCO3 18.9 mEQ/L (21-27) L 05/03/16 05:25 ABG Total CO2 19.9 mEq/L (20-26) L 05/03/16 05:25 ABG O2 Saturation 99 % (95-98) H 05/03/16 05:25 ABG Base Excess -5.4 mEq/L (-2.0 to 3.0) L 05/03/16 05:25 VBG pH 7.07 pH Units (7.32-7.42) L* 05/02/16 18:00 VBG pCO2 67 mmHg (41-51) H 05/02/16 18:00 VBG pO2 66 mmHg (25-40) H 05/02/16 18:00 VBG HCO3 19.4 mEq/L (21-27) L 05/02/16 18:00 Sodium 132 mEq/L (136-145) L 05/03/16 05:15 Potassium 3.4 mEq/L (3.5-4.5) L D 05/03/16 05:15 Carbon Dioxide 18 mEq/L (19-29) L 05/03/16 05:15 Glucose 142 mg/dL (70-99) H 05/03/16 05:15 POC Glucose 265 (58-89) H 05/02/16 19:37 Calculated Osmolality 278 (280-300) L 05/03/16 05:15 Calcium 8.0 mg/dL (8.6-10.8) L 05/03/16 05:15 Phosphorus 5.1 mg/dL (2.3-4.7) H 05/02/16 17:44 Total Bilirubin 2.1 mg/dL (0.2-1.2) H 05/03/16 05:15 Direct Bilirubin 1.7 mg/dL (0.0-0.5) H 05/02/16 17:44 AST 43 Units/L (5-34) H 05/03/16 05:15 Alkaline Phosphatase 1115 Units/L (38-126) H 05/03/16 05:15 C-Reactive Protein 53 mg/L (Less than 5) H 05/02/16 17:44 Albumin 2.1 g/dL (3.5-5.0) L 05/03/16 05:15 Globulin 5.1 g/dL (2.4-3.5) H 05/03/16 05:15 Albumin/Globulin Ratio 0.4 (1.1-2.2) L 05/03/16 05:15 Urine Clarity Turbid (Clear) A 05/02/16 17:25 Urine Protein 100 mg/dL (Neg-Trace) H 05/02/16 17:25 Urine Blood Large (Negative) H 05/02/16 17:25 Urine Bilirubin Small (Negative) H 05/02/16 17:25 Urine Microscopic RBC TNTC per hpf (0-3) H 05/02/16 17:25 Urine Microscopic WBC 3-5 per hpf (0-3) H 05/02/16 17:25 Ur Squamous Epith Cells Many per lpf (None-Few) H 05/02/16 17:25 Hyaline Casts Many per lpf (None-Few) H 05/02/16 17:25 - Microbiology Findings Microbiology Findings: Microbiology, Last 48 Hours 05/03/16 04:40 Sputum Culture - Preliminary Sputum - Clinical Findings Intake & Output: Intake & Output 05/02/16 05/03/16 05/03/16 23:59 07:59 15:59 Intake Total 1305 / 2305 649 / 649 Output Total 1050 / 1050 Balance 1305 / 2305 -401 / -401 Weight 57.742 kg 57.742 kg - Attending Attestation I examined this patient and my medical decision-making was reviewed with the DOG RAISER/PA/Advanced Practice Nurse/Resident Physician. I agree with the documented findings, disposition and treatment plan as described except to the extent set forth below. Patient seen and examined at bedside Labs, radiology, chart personally reviewed. All lines examined without evidence of infection. Neuropsych:intubated and sedated. Goal RASS (-) 2. wean benzo/profol as able. Pulm: Acute hypoxic respiratory failure to Influenza PNA meets mild ARDS criteria (unclear if possible cardiogenic edema). cont LTV ventilatory strategy. Peak/Plat accepatble treat for pneumonia. CT chest ordered Cards: No STEMI on ECG trop wnl. Hypotension s/t sedation vs distributive shock. ECHO pending to assess EF% and will likely start crystalloid challenge. Goal MAP >60. FEN-GI: NPO for now cont GI prophylaxis. 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 ID: Influenza A + start ostelamivir. Cover acutely for MRSA pending cultures given severity of illness. Heme/Onc: Leukopenia likely s/t acute sepsis. cnt DVT prophylaxis with heparin. H/H stable Endo: Glucose monitored Integ/MSK: skin care per ICU protocol RHEUM: Chronic RA on hydroxychlorqine recently tapered off steroids (1 month ago ). CODE: Full
[2016-05-03] MEDS: Pantoprazole 40 MG VIAL IVPB SCH (08:48)
[2016-05-03] MEDS: Chlorhexidine Rinse 15 ML MOUTHWASH MM SCH ×2 (08:48→20:01)
[2016-05-03] MEDS ORDERED: Magnesium Sulfate 2 GM in D5% in Water 100 ML IVPB PRN (12:23)
[2016-05-03] MEDS ORDERED: Calcium Gluconate 1,000 MG in D5% in Water 100 ML IVPB PRN (12:23)
[2016-05-03 12:47] LABS: Adenovirus Not Detected (Not Detect); Coronavirus 229E Not Detected (Not Detect); Coronavirus HKU1 Not Detected (Not Detect); Coronavirus NL63 Not Detected (Not Detect); Coronavirus OC43 Not Detected (Not Detect); Human Metapneumovirus Not Detected (Not Detect); Human Rhinovirus/Enterovirus Not Detected (Not Detect)
[2016-05-03 12:48] LABS: Bordetella Pertussis Not Detected (Not Detect); Chlamydophila pneumoniae Not Detected (Not Detect); Influenza A Subtype 2009 H1 Not Detected (Not Detect); Influenza A Untypeable Not Detected (Not Detect); Influenza B Not Detected (Not Detect); Mycoplasma pneumoniae Not Detected (Not Detect); Parainfluenza Virus 1 Not Detected (Not Detect); Parainfluenza Virus 2 Not Detected (Not Detect); Parainfluenza Virus 3 Not Detected (Not Detect); Parainfluenza Virus 4 Not Detected (Not Detect); Respiratory Syncytial Virus Not Detected (Not Detect)
[2016-05-03 13:07] LABS: Magnesium 1.4 mg/dL (1.6-2.6)
[2016-05-03 13:10] LABS: Ionized Calcium 1.09 mmol/L (1.15-1.35)
[2016-05-03] MEDS: Oseltamivir 6 MG/ML MLS PO SCH ×2 (14:45→20:10)
[2016-05-03] MEDS: MethylPREDNISolone 40 MG/ML VIAL IVP SCH (15:02)
[2016-05-03] MEDS ORDERED: *HR* Dextrose 50 % in Water (Syg) 50 ML SYRINGE IVP PRN (15:23)
[2016-05-03] MEDS ORDERED: Dextrose Gel 15 GM PO PRN ×2 (15:23)
[2016-05-03] MEDS ORDERED: D5% in Water 1,000 ML IV PRN (15:23)
--- NOTE | 2016-05-03 15:52 | ECHO - Doppler Report ---
Echocardiogram Name: Leigh Ann Leon Date of Study: 05/03/2016 Date: 1955 Ht: 65.0 in Medical Record#: [id number] Age: 60 Wt: 127.0 lb Gender: Female BSA: 1.63 Order #: [id number] Location: [facility] Room #: 03 Reading Physician: Kristopher Sarmiento DO, MEL, BIENVENIDO CARDOSO Reproductive Endocrinologist: Cori Adler Ordering Physician: Shant Herman MD Primary Physician: None Indications: Pulmonary edema Impressions: Technically sub-optimal due to clinical status. LVEF 45-50%. Low normal/mildly reduced LV systolic function. Grossly normal LV chamber size and wall thickness. Septal motion appeared atypical and hypokinetic. Inferior segments not well visualized. Mild left ventricular diastolic dysfunction. Atypical septal motion possibly due to a bundle branch block. Normal right ventricular structure and function. No obvious signifiacnt valvular dysfunction. Unable to estimate RVSP due to lack of adequate TR jet. Recommend a repeat study with Definity to better assess LV segmental wall motion overall function. Left Ventricular Wall Motion: Rest Echo Findings The apical septal and mid anterior septal corado were hypokinetic. The apical inferior, mid inferior and basal inferior corado were not visualized. All other wall segments showed normal motion. Findings: Study Quality * Technically sub-optimal due to clinical status. ECG Findings * Normal sinus rhythm. Left Ventricle * LVEF 45-50%. Low normal/mildly reduced LV systolic function. * Septal motion appeared atypical and hypokinetic. Inferior segments not well visualized. * Grossly normal LV chamber size and wall thickness. * Mild left ventricular diastolic dysfunction. Right Ventricle * Normal right ventricular structure and function. Left Atrium * Mildly dilated left atrium. Right Atrium * Normal right atrial size. Interatrial Septum * Interatrial septum not well evaluated. Aortic Valve * Aortic valve not well visualized. * No aortic regurgitation. * No aortic stenosis. Mitral Valve * Normal mitral valve structure and function. * No mitral stenosis. * No mitral regurgitation. Tricuspid Valve * Normal tricuspid valve structure and function. * Trace tricuspid regurgitation. * Unable to estimate RVSP due to lack of adequate TR jet. Pulmonic Valve * Pulmonic valve not well visualized. Aorta * Normally sized aortic root. Pericardium * The pericardium appears normal. IVC * Normal IVC dimensions and inspiratory collapse. Pulmonary Artery * Normal visualized portions of the main pulmonary artery. History Measurements: BP: 101/ 53 2D Normal Values RVIDd: 3.00 cm <2.7 cm IVSd: 1.00 cm 0.6 - 1.0 cm LVIDd: 4.50 cm 3.7 - 5.6 cm LVPWd: 1.10 cm 0.6 - 1.1 cm LVIDs: 3.10 cm 1.5 - 3.6 cm AO: 2.40 cm < 4.0 cm LA: 2.60 cm 2.0 - 4.0cm %FS: 31.10 cm >25 % LA volume: 66 Mitral Valve Peak E:.57 m/sec Peak A:.76 m/sec E/A Ratio:0.8 Peak E' Lat Vishnu:8.09 cm/s Peak E' Med Vishnu:5.85 cm/s E/E' Lat Ratio:7 E/E' Med Ratio:9.7 Tricuspid Valve TV Regurg Peak Grad: 4.00mmHg TV Regurg Peak Vishnu: .99m/sec Updated by Kristopher Sarmiento DO, FACJose Luis, BIENVENIDO CARDOSO on 05/03/2016 3:47:32 PM electronically signed on 05/03/2016 3:47:59 PM with status of Final Wall Motion [place]: 1=Normal, 2=Hypokinesis, 3=Akinesis, 4=Dyskinesis, 5=Aneurysmal, 6=Hyperkinetic, X=Not Visualized (Blank)=Missing
[2016-05-03] MEDS: Insulin LISPRO 300 UNITS/3 ML VIAL SQ SCH ×2 (15:57→19:20)
--- NOTE | 2016-05-03 16:41 | Electrocardiograph Report ---
[place] [address] Test Date: 2016-05-02 Pat Name: Leigh Ann Leon Department: 103 Room: [facility] Gender: F Metal Pourer: : 1955 Requested By: Maxwell Reina Order Number: [id number] Reading MD: Neris Chery Measurements Intervals [place] Rate: 114 P: 34 IN: 155 QRS: -14 QRSD: 116 T: 108 QT: 305 QTc: 372 Interpretive Statements SINUS TACHYCARDIA LEFT VENTRICULAR HYPERTROPHY AND ST-T CHANGE Electronically Signed On 05-03-2016 16:39:23 EST by Neris Chery
[2016-05-03] MEDS: Ipratropium/Albuterol Neb 3 ML IH SCH ×3 (16:58→23:45)
[2016-05-03] MEDS ORDERED: Levofloxacin 500 MG/100 ML 500 MG/100 ML BAG IVPB SCH (18:00)
[2016-05-03 18:31] LABS: BUN/Creatinine Ratio 25 (6-26); Blood Urea Nitrogen 15 mg/dL (7-20); Calcium 8.3 mg/dL (8.6-10.8); Carbon Dioxide 19 mEq/L (19-29); Chloride 106 mEq/L (98-109); Glucose 147 mg/dL (70-99); Magnesium 1.9 mg/dL (1.6-2.6); Osmolality,Calculated 278 (280-300); Sodium 132 mEq/L (136-145); eGFR For African Americans > 60 (> 60); eGFR For Non-African Americans > 60 (> 60)
[2016-05-03 18:40] LABS: Potassium 4.5 mEq/L (3.5-4.5)
[2016-05-03] MEDS: Dexmedetomidine HCl 400 MCG/100 ML MLS IVC SCH ×2 (19:19→20:01)
[2016-05-03 22:32] LABS: Acinetobacter baumannii by PCR Not Detected (Not Detect); Candida albicans by PCR Not Detected (Not Detect); Candida glabrata by PCR Not Detected (Not Detect); Candida krusei by PCR Not Detected (Not Detect); Candida parapsilosis by PCR Not Detected (Not Detect); Candida tropicalis by PCR Not Detected (Not Detect); Enterococcus by PCR Not Detected (Not Detect); Escherichia coli by PCR Not Detected (Not Detect); Klebsiella oxytoca by PCR Not Detected (Not Detect); Klebsiella pneumoniae by PCR Not Detected (Not Detect); Pseudomonas aeruginosa by PCR Not Detected (Not Detect); Serratia marcescens by PCR Not Detected (Not Detect); Staphylococcus aureus by PCR Not Detected (Not Detect); Streptococcus agalactiae(B)PCR Not Detected (Not Detect); Streptococcus by PCR Not Detected (Not Detect); Streptococcus pneumoniae PCR Not Detected (Not Detect); Streptococcus pyogenes (A) PCR Not Detected (Not Detect); mecA Methicillin-Resist Gene ***DETECTED*** (Not Detect)
[2016-05-04] MEDS: Insulin LISPRO 300 UNITS/3 ML VIAL SQ SCH ×7 (00:07→20:50)
[2016-05-04] MEDS: Lacri-Lube 3.5 GM TUBE BOTH EYES SCH ×7 (00:07→23:32)
[2016-05-04] MEDS: MethylPREDNISolone 40 MG/ML VIAL IVP SCH ×2 (00:09→08:55)
[2016-05-04] MEDS: FentaNYL (PF) 1,000 MCG in 0.9 % Sodium Chloride 80 ML IVC SCH ×4 (01:05→22:33)
[2016-05-04] MEDS: Ipratropium/Albuterol Neb 3 ML IH SCH ×5 (03:40→19:47)
[2016-05-04 03:43] LABS: Mean Corpuscular HGB Conc 32.2 g/dL (31.6-35.5)
[2016-05-04 03:45] LABS: Hematocrit 28.6 % (35.3-44.9); Hemoglobin 9.2 g/dL (11.5-15.4); Immature Platelets 1.1 % (1.1-6.1); Lymphocytes # 0.3 K/mcL (0.6-4.6); Mean Corpuscular Volume 87.2 fL (83.0-100.0); Mean Platelet Volume 9.4 fL (9.4-12.4); Platelet Count 207 K/mcL (140-400); Red Blood Count 3.28 M/mcL (3.82-4.97); Red Cell Distribution Width 14.9 % (11.5-14.5)
[2016-05-04 03:55] LABS: BUN/Creatinine Ratio 30 (6-26); Blood Urea Nitrogen 19 mg/dL (7-20); Calcium 8.3 mg/dL (8.6-10.8); Carbon Dioxide 17 mEq/L (19-29); Chloride 109 mEq/L (98-109); Glucose 160 mg/dL (70-99); Magnesium 2.3 mg/dL (1.6-2.6); Osmolality,Calculated 284 (280-300); Potassium 4.5 mEq/L (3.5-4.5); Sodium 134 mEq/L (136-145); eGFR For African Americans > 60 (> 60); eGFR For Non-African Americans > 60 (> 60)
[2016-05-04 04:12] LABS: Monocytes # 0.1 K/mcL (0.0-1.3); Neutrophils # 0.2 K/mcL (1.6-8.9); Platelet Estimate Normal (Normal)
[2016-05-04] MEDS: Vancomycin 1,000 MG in D5% in Water 250 ML IVPB SCH ×2 (05:09→18:26)
[2016-05-04 05:31] LABS: ABG Base Excess -6.2 mEq/L (-2.0 to 3.0); ABG HCO3 18.9 mEQ/L (21-27); ABG Oxygen Saturation 99 % (95-98); ABG PCO2 35 mmHg (35-45); ABG PH 7.34 pH Units (7.32-7.45); ABG PO2 137 mmHg (85-104)
[2016-05-04 05:33] LABS: Blood Gas FiO2 30 %
[2016-05-04] MEDS: *HR* Heparin 5,000 UNIT/ML VIAL SQ SCH ×3 (06:00→23:31)
[2016-05-04] MEDS: Dexmedetomidine HCl 400 MCG/100 ML MLS IVC SCH ×2 (06:07→17:00)
[2016-05-04] MEDS: Norepinephrine 4 MG in D5% in Water 250 ML IVC SCH (06:07)
--- NOTE | 2016-05-04 06:46 | Pulmonology Progress Note ---
<Mary JoMykelChris W - Last Filed: 05/04/16 10:14> Date of Encounter: 05/04/16 Objective PUL Vital signs: Last Vital Signs Temp 98.2 F 05/04/16 07:33 Pulse 79 05/04/16 08:30 Resp 25 05/04/16 08:30 BP 102/54 05/04/16 08:30 Pulse Ox 100 05/04/16 08:30 Ventilator Settings Ventilator Settings: Ventilator Settings, Last 8 Hours Ventilator Mode VC+ Ventilator Mode VC+ Ventilator Mode VC+ Ventilator Mode VC+ Ventilator Mode VC+ Ventilator Mode VC+ Ventilator Mode VC+ Ventilator Mode VC+ Ventilator Mode VC+ Ventilator Mode VC+ Ventilator Tidal Volume 220 Setting Ventilator Tidal Volume 350 Setting Ventilator Tidal Volume 350 Setting Ventilator Tidal Volume 350 Setting Ventilator Tidal Volume 350 Setting Ventilator Tidal Volume 350 Setting Ventilator Tidal Volume 350 Setting Ventilator Tidal Volume 350 Setting Ventilator Tidal Volume 350 Setting Ventilator Tidal Volume 350 Setting Ventilator Respiratory Rate 16 Setting Ventilator Respiratory Rate 16 Setting Ventilator Respiratory Rate 16 Setting Ventilator Respiratory Rate 16 Setting Ventilator Respiratory Rate 16 Setting Ventilator Respiratory Rate 16 Setting Ventilator Respiratory Rate 16 Setting Ventilator Respiratory Rate 16 Setting Ventilator Respiratory Rate 16 Setting Ventilator Respiratory Rate 16 Setting Actual Respiratory Rate 25 Actual Respiratory Rate 20 Actual Respiratory Rate 21 Actual Respiratory Rate 21 Actual Respiratory Rate 21 Actual Respiratory Rate 21 Actual Respiratory Rate 19 Actual Respiratory Rate 19 Actual Respiratory Rate 19 Positive End Expiratory 5 Pressure Positive End Expiratory 5 Pressure Positive End Expiratory 5 Pressure Positive End Expiratory 5 Pressure Positive End Expiratory 5 Pressure Positive End Expiratory 5 Pressure Positive End Expiratory 5 Pressure Positive End Expiratory 5 Pressure Positive End Expiratory 5 Pressure Positive End Expiratory 5 Pressure Peak Inspiratory Airway 11 Pressure Peak Inspiratory Airway 11 Pressure Peak Inspiratory Airway 18 Pressure Peak Inspiratory Airway 12 Pressure Peak Inspiratory Airway 12 Pressure Peak Inspiratory Airway 12 Pressure Peak Inspiratory Airway 10 Pressure Peak Inspiratory Airway 11 Pressure Peak Inspiratory Airway 11 Pressure Results - Laboratory Findings CBC and BMP: 05/04/16 06:43 05/04/16 03:30 ABG ABG pH 7.34 pH Units (7.32-7.45) 05/04/16 05:17 ABG pCO2 35 mmHg (35-45) 05/04/16 05:17 ABG pO2 137 mmHg (85-104) H 05/04/16 05:17 ABG O2 Saturation 99 % (95-98) H 05/04/16 05:17 PT/INR, D-dimer PT 12.3 Seconds (9.4-12.1) H 05/02/16 17:44 Abnormal lab findings: Abnormal lab results WBC 0.8 K/mcL (4.3-11.1) L* 05/04/16 06:43 RBC 3.13 M/mcL (3.82-4.97) L 05/04/16 06:43 Hgb 8.7 g/dL (11.5-15.4) L 05/04/16 06:43 Hct 27.3 % (35.3-44.9) L 05/04/16 06:43 MCH 27.8 pg (28.0-33.3) L 05/04/16 06:43 RDW 15.1 % (11.5-14.5) H 05/04/16 06:43 MPV 9.2 fL (9.4-12.4) L 05/04/16 06:43 Band Neutrophils % 22.0 % (0-4) H 05/04/16 06:43 Metamyelocytes % 1.0 % (0) H 05/02/16 18:08 Myelocytes % 1.0 % (0) H 05/02/16 18:08 Promyelocytes % 2.0 % (0) H 05/04/16 03:30 Neutrophils # 0.3 K/mcL (1.6-8.9) L 05/04/16 06:43 Lymphocytes # 0.4 K/mcL (0.6-4.6) L 05/04/16 06:43 PT 12.3 Seconds (9.4-12.1) H 05/02/16 17:44 APTT 46.7 Seconds (26.0-36.0) H 05/02/16 17:44 ABG pO2 137 mmHg (85-104) H 05/04/16 05:17 ABG HCO3 18.9 mEQ/L (21-27) L 05/04/16 05:17 ABG O2 Saturation 99 % (95-98) H 05/04/16 05:17 ABG Base Excess -6.2 mEq/L (-2.0 to 3.0) L 05/04/16 05:17 VBG pH 7.07 pH Units (7.32-7.42) L* 05/02/16 18:00 VBG pCO2 67 mmHg (41-51) H 05/02/16 18:00 VBG pO2 66 mmHg (25-40) H 05/02/16 18:00 VBG HCO3 19.4 mEq/L (21-27) L 05/02/16 18:00 Sodium 134 mEq/L (136-145) L 05/04/16 03:30 Carbon Dioxide 17 mEq/L (19-29) L 05/04/16 03:30 BUN/Creatinine Ratio 30 (6-26) H 05/04/16 03:30 Glucose 160 mg/dL (70-99) H 05/04/16 03:30 POC Glucose 140 (58-89) H 05/04/16 00:05 Calcium 8.3 mg/dL (8.6-10.8) L 05/04/16 03:30 Phosphorus 5.1 mg/dL (2.3-4.7) H 05/02/16 17:44 Total Bilirubin 2.1 mg/dL (0.2-1.2) H 05/03/16 05:15 Direct Bilirubin 1.7 mg/dL (0.0-0.5) H 05/02/16 17:44 AST 43 Units/L (5-34) H 05/03/16 05:15 Alkaline Phosphatase 1115 Units/L (38-126) H 05/03/16 05:15 C-Reactive Protein 53 mg/L (Less than 5) H 05/02/16 17:44 Albumin 2.1 g/dL (3.5-5.0) L 05/03/16 05:15 Globulin 5.1 g/dL (2.4-3.5) H 05/03/16 05:15 Albumin/Globulin Ratio 0.4 (1.1-2.2) L 05/03/16 05:15 Urine Clarity Turbid (Clear) A 05/02/16 17:25 Urine Protein 100 mg/dL (Neg-Trace) H 05/02/16 17:25 Urine Blood Large (Negative) H 05/02/16 17:25 Urine Bilirubin Small (Negative) H 05/02/16 17:25 Urine Microscopic RBC TNTC per hpf (0-3) H 05/02/16 17:25 Urine Microscopic WBC 3-5 per hpf (0-3) H 05/02/16 17:25 Ur Squamous Epith Cells Many per lpf (None-Few) H 05/02/16 17:25 Hyaline Casts Many per lpf (None-Few) H 05/02/16 17:25 Influenza A (H3) PCR DETECTED (Not Detect) A 05/03/16 10:42 Staphylococcus sp PCR DETECTED (Not Detect) A 05/02/16 18:08 MRS (TEM-PCR) DETECTED (Not Detect) A 05/02/16 18:08 - Microbiology Findings Microbiology Findings: Microbiology, Last 48 Hours 05/03/16 04:40 Sputum Culture - Preliminary Sputum - Clinical Findings Intake & Output: Intake & Output 05/03/16 05/04/16 05/04/16 23:59 07:59 15:59 Intake Total 1002.7 / 1002.7 774 / 774 Output Total 450 / 450 650 / 650 Balance 552.7 / 552.7 124 / 124 Consult Discharge Plan - Plan Referrals: NO,PCP [Primary Care Provider] - - Attending Attestation I examined this patient and my medical decision-making was reviewed with the RESPIRATORY TECH/PA/Advanced Practice Nurse/Resident Physician. I agree with the documented findings, disposition and treatment plan as described except to the extent set forth below. Patient seen and examined at bedside Labs, radiology, chart personally reviewed. All lines examined without evidence of infection. Neuropsych:intubated and sedated. Goal RASS (-) 2. wean benzo as able. cont precedex. chronic pain cont fentanyl Pulm: Acute hypoxic respiratory failure to Influenza PNA meets mild ARDS criteria but also element of cardiogenic edema. cont LTV ventilatory strategy. Peak/Plat acceptable treat for pneumonia. COPD on Steroids and BD's. Cards: No STEMI on ECG trop wnl. Suspect Distributive shock ECHO shows reduced EF% (no prior) repeat ECHO with Definity. Goal MAP >60. FEN-GI: Start Enteral Feedings. Cont GI prophylaxis. 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 Good UOP ID: Influenza A + CONT ostelamivir. MRSA + on infectious panel cover with Vanc ( superinfection) Heme/Onc: Leukopenia likely s/t acute sepsis.with underlying RA. Cont DVT prophylaxis with heparin. H/H stable Endo: Glucose monitored (checking random cortisol) Integ/MSK: skin care per ICU protocol RHEUM: Chronic RA on hydroxychlorqine recently tapered off steroids (1 month ago ). CODE: Full <George Jaquez - Last Filed: 05/04/16 12:38> Date of Encounter: 05/04/16 Time of Encounter: 06:44 Assessment and Plan (1) Acute respiratory distress syndrome (ARDS) Current Visit: Yes Status: Acute Patient was brought in from [facility] with acute respiratory distress. CXR revealed bilateral hazy parenchymal disease predominantly in the perihilar regions favoring edema. Influenza A positive, MRSA bacteremia, sputum cultures pending Echo revealed EF of 45-50% Patient is currently alert with spontaneous eye opening and extremity movement and appears restless while on ventilator. Vent settings at Tv 350mL, rate 16, DiO2 30%, and PEEP 5. ABG this morning pH 7.34, pCO2 35, pO2 137, and 99%. Acute respiratory failure secondary to ARDS due to possible HCAP vs confirmed influenza A with MRSA bacteremia vs possible undiagnosed cardiogenic edema. Continue ventilator support. Continue with antibiotics Vancomycin and antiviral Oseltamavir. Limited echo with definity pending. Continue with duonebs q4h and solumedrol q8h (2) Acute respiratory failure Current Visit: Yes Status: Acute Continue per plan in assessment above. Qualifiers: Respiratory failure complication: hypoxia and hypercapnia Qualified Code(s) : J96.01 - Acute respiratory failure with hypoxia; J96.02 - Acute respiratory failure with hypercapnia (3) Pneumonia Current Visit: Yes Status: Acute Patient of shelter facility due to dementia and schizophrenia. MRSA bacteremia. Continue with Vancomycin. Qualifiers: Pneumonia type: due to unspecified organism Laterality: right Lung location: lower lobe of lung Qualified Code(s): J18.1 - Lobar pneumonia, unspecified organism (4) Influenza A Current Visit: Yes Status: Acute Continue with Oseltamavir (5) Sepsis Current Visit: Yes Status: Acute Bacteremia with gram positive bacteria and overlying influenza pneumonia. Leukocytopenia of 0.7 this morning on labs. Blood cultures returned gram positive cocci in clusters, staphylococcus, and with methicillin resistance. Continue with Vancomycin and Oseltamavir. Qualifiers: Sepsis type: methicillin resistant Staphylococcus aureus Qualified Code(s) : A41.02 - Sepsis due to Methicillin resistant Staphylococcus aureus (6) Rheumatoid arthritis involving both hands with positive rheumatoid factor Current Visit: Yes Status: Chronic Continue hydroxychlooquine and pain management. History of residential steroid use, tapered off about 1 month ago. Random cortisol ordered. (7) DVT prophylaxis Current Visit: Yes Status: Acute heparin for dvt ppx. Subjective Principal diagnosis: Acute Resp Failure, Influenza A, MRSA bacteremia, Sepsis Interval history: Patient alert, awake, spontaneous eye opening, moves all extremities. Patient reports pain of right shoulder and is able to move it around with good ROM. Patient appears agitated, restless, and uncomfortable. Denies fevers, chills, sweats, changes in vision or hearing, chest pain, shortness of breath, abdominal pain, weakness, or loss of sensation. Objective PUL Vital signs: Last Vital Signs Temp 98.8 F 05/04/16 04:00 Pulse 77 05/04/16 05:57 Resp 22 05/04/16 05:57 BP 100/52 05/04/16 05:57 Pulse Ox 100 05/04/16 05:57 General appearance: alert, other (on ventilator, spontaneous eye opening, moves all extremities) Eyes: nonicteric Neck: supple, no lymphadenopathy, no JVD Effort: normal Auscultation: bilateral: rhonchi Cardiovascular: regular rate and rhythm Gastrointestinal: normoactive bowel sounds, soft, non-tender, non-distended Integumentary: normal, other (surgical scarring over bilateral knees) Extremities: no cyanosis, no edema, pink and warm, pulses normal, other (hand and feet changes suggestive of RA) Musculoskeletal: no deformities, ROM normal Gait: normal posture non-focal exam, pupils equal and round, motor strength normal and symmetric Ventilator Settings Ventilator Settings: Ventilator Settings, Last 8 Hours Ventilator Mode VC+ Ventilator Mode VC+ Ventilator Mode VC+ Ventilator Mode VC+ Ventilator Mode VC+ Ventilator Mode VC+ Ventilator Mode VC+ Ventilator Mode VC+ Ventilator Mode VC+ Ventilator Mode VC+ Ventilator Mode VC+ Ventilator Tidal Volume 350 Setting Ventilator Tidal Volume 350 Setting Ventilator Tidal Volume 350 Setting Ventilator Tidal Volume 350 Setting Ventilator Tidal Volume 350 Setting Ventilator Tidal Volume 350 Setting Ventilator Tidal Volume 350 Setting Ventilator Tidal Volume 350 Setting Ventilator Tidal Volume 350 Setting Ventilator Tidal Volume 350 Setting Ventilator Tidal Volume 350 Setting Ventilator Respiratory Rate 16 Setting Ventilator Respiratory Rate 16 Setting Ventilator Respiratory Rate 16 Setting Ventilator Respiratory Rate 16 Setting Ventilator Respiratory Rate 16 Setting Ventilator Respiratory Rate 16 Setting Ventilator Respiratory Rate 16 Setting Ventilator Respiratory Rate 16 Setting Ventilator Respiratory Rate 16 Setting Ventilator Respiratory Rate 16 Setting Ventilator Respiratory Rate 16 Setting Actual Respiratory Rate 21 Actual Respiratory Rate 21 Actual Respiratory Rate 21 Actual Respiratory Rate 21 Actual Respiratory Rate 19 Actual Respiratory Rate 19 Actual Respiratory Rate 19 Actual Respiratory Rate 17 Actual Respiratory Rate 17 Actual Respiratory Rate 18 Actual Respiratory Rate 17 Positive End Expiratory 5 Pressure Positive End Expiratory 5 Pressure Positive End Expiratory 5 Pressure Positive End Expiratory 5 Pressure Positive End Expiratory 5 Pressure Positive End Expiratory 5 Pressure Positive End Expiratory 5 Pressure Positive End Expiratory 5 Pressure Positive End Expiratory 5 Pressure Positive End Expiratory 5 Pressure Positive End Expiratory 5 Pressure Peak Inspiratory Airway 18 Pressure Peak Inspiratory Airway 12 Pressure Peak Inspiratory Airway 12 Pressure Peak Inspiratory Airway 12 Pressure Peak Inspiratory Airway 10 Pressure Peak Inspiratory Airway 11 Pressure Peak Inspiratory Airway 11 Pressure Peak Inspiratory Airway 10 Pressure Peak Inspiratory Airway 10 Pressure Peak Inspiratory Airway 11 Pressure Peak Inspiratory Airway 10 Pressure Results - Laboratory Findings CBC and BMP: 05/04/16 06:43 05/04/16 03:30 ABG ABG pH 7.34 pH Units (7.32-7.45) 05/04/16 05:17 ABG pCO2 35 mmHg (35-45) 05/04/16 05:17 ABG pO2 137 mmHg (85-104) H 05/04/16 05:17 ABG O2 Saturation 99 % (95-98) H 05/04/16 05:17 PT/INR, D-dimer PT 12.3 Seconds (9.4-12.1) H 05/02/16 17:44 Abnormal lab findings: Abnormal lab results WBC 0.7 K/mcL (4.3-11.1) L* D 05/04/16 03:30 RBC 3.28 M/mcL (3.82-4.97) L 05/04/16 03:30 Hgb 9.2 g/dL (11.5-15.4) L 05/04/16 03:30 Hct 28.6 % (35.3-44.9) L 05/04/16 03:30 RDW 14.9 % (11.5-14.5) H 05/04/16 03:30 Band Neutrophils % 6.0 % (0-4) H 05/04/16 03:30 Metamyelocytes % 1.0 % (0) H 05/02/16 18:08 Myelocytes % 1.0 % (0) H 05/02/16 18:08 Promyelocytes % 2.0 % (0) H 05/04/16 03:30 Neutrophils # 0.2 K/mcL (1.6-8.9) L 05/04/16 03:30 Lymphocytes # 0.3 K/mcL (0.6-4.6) L 05/04/16 03:30 PT 12.3 Seconds (9.4-12.1) H 05/02/16 17:44 APTT 46.7 Seconds (26.0-36.0) H 05/02/16 17:44 ABG pO2 137 mmHg (85-104) H 05/04/16 05:17 ABG HCO3 18.9 mEQ/L (21-27) L 05/04/16 05:17 ABG O2 Saturation 99 % (95-98) H 05/04/16 05:17 ABG Base Excess -6.2 mEq/L (-2.0 to 3.0) L 05/04/16 05:17 VBG pH 7.07 pH Units (7.32-7.42) L* 05/02/16 18:00 VBG pCO2 67 mmHg (41-51) H 05/02/16 18:00 VBG pO2 66 mmHg (25-40) H 05/02/16 18:00 VBG HCO3 19.4 mEq/L (21-27) L 05/02/16 18:00 Sodium 134 mEq/L (136-145) L 05/04/16 03:30 Carbon Dioxide 17 mEq/L (19-29) L 05/04/16 03:30 BUN/Creatinine Ratio 30 (6-26) H 05/04/16 03:30 Glucose 160 mg/dL (70-99) H 05/04/16 03:30 POC Glucose 140 (58-89) H 05/04/16 00:05 Calcium 8.3 mg/dL (8.6-10.8) L 05/04/16 03:30 Phosphorus 5.1 mg/dL (2.3-4.7) H 05/02/16 17:44 Total Bilirubin 2.1 mg/dL (0.2-1.2) H 05/03/16 05:15 Direct Bilirubin 1.7 mg/dL (0.0-0.5) H 02/09/17 17:44 AST 43 Units/L (5-34) H 05/03/16 05:15 Alkaline Phosphatase 1115 Units/L (38-126) H 05/03/16 05:15 C-Reactive Protein 53 mg/L (Less than 5) H 05/02/16 17:44 Albumin 2.1 g/dL (3.5-5.0) L 05/03/16 05:15 Globulin 5.1 g/dL (2.4-3.5) H 05/03/16 05:15 Albumin/Globulin Ratio 0.4 (1.1-2.2) L 05/03/16 05:15 Urine Clarity Turbid (Clear) A 05/02/16 17:25 Urine Protein 100 mg/dL (Neg-Trace) H 05/02/16 17:25 Urine Blood Large (Negative) H 05/02/16 17:25 Urine Bilirubin Small (Negative) H 05/02/16 17:25 Urine Microscopic RBC TNTC per hpf (0-3) H 05/02/16 17:25 Urine Microscopic WBC 3-5 per hpf (0-3) H 05/02/16 17:25 Ur Squamous Epith Cells Many per lpf (None-Few) H 05/02/16 17:25 Hyaline Casts Many per lpf (None-Few) H 05/02/16 17:25 Influenza A (H3) PCR DETECTED (Not Detect) A 05/03/16 10:42 Staphylococcus sp PCR DETECTED (Not Detect) A 05/02/16 18:08 MRS (TEM-PCR) DETECTED (Not Detect) A 05/02/16 18:08 - Microbiology Findings Microbiology Findings: Microbiology, Last 48 Hours 05/03/16 04:40 Sputum Culture - Preliminary Sputum - Clinical Findings Intake & Output: Intake & Output 05/03/16 05/03/16 05/04/16 15:59 23:59 07:59 Intake Total 510.7 / 510.7 1002.7 / 1002.7 774 / 774 Output Total 900 / 900 450 / 450 550 / 550 Balance -389.3 / -389.3 552.7 / 552.7 224 / 224
[2016-05-04 06:49] LABS: Hemoglobin 8.7 g/dL (11.5-15.4)
[2016-05-04 06:51] LABS: Hematocrit 27.3 % (35.3-44.9); Mean Corpuscular HGB Conc 31.9 g/dL (31.6-35.5); Mean Corpuscular Hemoglobin 27.8 pg (28.0-33.3); Mean Corpuscular Volume 87.2 fL (83.0-100.0); Mean Platelet Volume 9.2 fL (9.4-12.4); Platelet Count 167 K/mcL (140-400); Red Blood Count 3.13 M/mcL (3.82-4.97); Red Cell Distribution Width 15.1 % (11.5-14.5)
[2016-05-04] MEDS ORDERED: Perflutren Lipid Microsphere 1.3 ML in 0.9 % Sodium Chloride 8.7 ML IVP ONE (07:32)
[2016-05-04] MEDS ORDERED: Perflutren Lipid Microsphere 2 ML VIAL ONE (07:40)
[2016-05-04 07:41] LABS: Lymphocytes # 0.4 K/mcL (0.6-4.6); Monocytes # 0.1 K/mcL (0.0-1.3); Neutrophils # 0.3 K/mcL (1.6-8.9)
[2016-05-04] MEDS: Chlorhexidine Rinse 15 ML MOUTHWASH MM SCH ×2 (08:55→20:23)
[2016-05-04] MEDS: Pantoprazole 40 MG VIAL IVPB SCH (08:55)
[2016-05-04 11:05] LABS: ABG HCO3 19.7 mEQ/L (21-27); ABG Oxygen Saturation 99 % (95-98); ABG PCO2 34 mmHg (35-45); ABG PH 7.37 pH Units (7.32-7.45); ABG PO2 133 mmHg (85-104); ABG TCO2 20.7 mEq/L (20-26); Blood Gas FiO2 30 %
[2016-05-04] MEDS: Oseltamivir 6 MG/ML MLS PO SCH (12:52)
--- NOTE | 2016-05-04 13:49 | ECHO - Doppler Report ---
Limited Echo with Imaging Enhancement Agent Name: Leigh Ann Leon Date of Study: 05/04/2016 Date: 1955 Ht: 65.0 in Medical Record#: [id number] Age: 60 Wt: 127.0 lb Gender: Female BSA: 1.63 Order #: [id number] Location: [facility] Room #: IC3 Reading Physician: Mariana Maldonado DO Asphalt Paving Foreman: Denae Martines Ordering Physician: Chris Camargo MD Primary Physician: None Indications: Assess LV function Impressions: LVEF 50-55%. Even with use of Definity, LV segmental wall motion could not be well evaluated. Left Ventricular Wall Motion: Rest Echo Findings All wall segments showed normal motion. Findings: Study Quality * Technically challenging exam. ECG Findings * Normal sinus rhythm. Left Ventricle * Definity echo contrast was used. * Normal LV chamber size, wall thickness. * LVEF 50-55%. * Even with use of Definity, not all LV segments were well visualized. Right Ventricle * Normal right ventricular structure and function. Left Atrium * Normal left atrial size. Right Atrium * Normal right atrial size. History 05/03/2016 a Previous Echo was performed. Contrast: Definity 1.3 ml in 8.7 ml of saline 2 ml. Measurements: BP: 96/ 51 2D Normal Values IVSd: 1.10 cm 0.6 - 1.0 cm LVIDd: 5.10 cm 3.7 - 5.6 cm LVPWd: 1.10 cm 0.6 - 1.1 cm LVIDs: 3.80 cm 1.5 - 3.6 cm AO: 2.90 cm < 4.0 cm LA: 3.40 cm 2.0 - 4.0cm %FS: 25.50 cm >25 % LA volume: Updated by Mariana Maldonado on 05/04/2016 1:43:16 PM electronically signed on 05/04/2016 1:45:00 PM with status of Final Wall Motion [place]: 1=Normal, 2=Hypokinesis, 3=Akinesis, 4=Dyskinesis, 5=Aneurysmal, 6=Hyperkinetic, X=Not Visualized (Blank)=Missing
[2016-05-04] MEDS: Hydrocortisone Sodium Succ 100 MG/2 ML VIAL IVP SCH ×2 (16:32→23:31)
[2016-05-04 16:33] LABS: Mean Corpuscular HGB Conc 31.9 g/dL (31.6-35.5); Mean Corpuscular Hemoglobin 27.9 pg (28.0-33.3)
[2016-05-04 16:34] LABS: Hematocrit 28.2 % (35.3-44.9); Immature Granulocytes % 0.9 % (0-4); Lymphocytes # 0.4 K/mcL (0.6-4.6); Lymphocytes % 35.9 %; Mean Corpuscular Volume 87.3 fL (83.0-100.0); Mean Platelet Volume 9.4 fL (9.4-12.4); Monocytes # 0.4 K/mcL (0.0-1.3); Monocytes % 30.8 %; Neutrophils # 0.4 K/mcL (1.6-8.9); Platelet Count 200 K/mcL (140-400); Red Blood Count 3.23 M/mcL (3.82-4.97); Segmented Neutrophils % 32.4 %
[2016-05-04 16:45] LABS: BUN/Creatinine Ratio 40 (6-26); Blood Urea Nitrogen 23 mg/dL (7-20); Calcium 8.2 mg/dL (8.6-10.8); Carbon Dioxide 18 mEq/L (19-29); Chloride 110 mEq/L (98-109); Glucose 151 mg/dL (70-99); Osmolality,Calculated 287 (280-300); Potassium 4.5 mEq/L (3.5-4.5); Sodium 135 mEq/L (136-145); eGFR For African Americans > 60 (> 60); eGFR For Non-African Americans > 60 (> 60)
[2016-05-04 17:03] LABS: Platelet Estimate Normal (Normal)
[2016-05-04] MEDS ORDERED: Oseltamivir 6 MG/ML MLS PO SCH (21:00)
[2016-05-05] MEDS: Insulin LISPRO 300 UNITS/3 ML VIAL SQ SCH ×7 (00:27→23:28)
[2016-05-05] MEDS: Ipratropium/Albuterol Neb 3 ML IH SCH ×7 (00:44→23:51)
[2016-05-05] MEDS: Dexmedetomidine HCl 400 MCG/100 ML MLS IVC SCH ×3 (02:11→22:14)
[2016-05-05 03:36] LABS: Hematocrit 30.7 % (35.3-44.9); Hemoglobin 9.5 g/dL (11.5-15.4); Immature Granulocytes % 1.4 % (0-4); Lymphocytes % 30.3 %; Mean Corpuscular HGB Conc 30.9 g/dL (31.6-35.5); Mean Corpuscular Hemoglobin 27.4 pg (28.0-33.3); Mean Corpuscular Volume 88.5 fL (83.0-100.0); Monocytes # 0.5 K/mcL (0.0-1.3); Monocytes % 31.7 %; Platelet Count 244 K/mcL (140-400); Red Blood Count 3.47 M/mcL (3.82-4.97); Red Cell Distribution Width 15.2 % (11.5-14.5); Segmented Neutrophils % 36.6 %
[2016-05-05 03:42] LABS: Lymphocytes # 0.5 K/mcL (0.6-4.6); Neutrophils # 0.6 K/mcL (1.6-8.9)
[2016-05-05 03:48] LABS: BUN/Creatinine Ratio 44 (6-26); Blood Urea Nitrogen 26 mg/dL (7-20); Calcium 8.2 mg/dL (8.6-10.8); Carbon Dioxide 19 mEq/L (19-29); Chloride 111 mEq/L (98-109); Glucose 151 mg/dL (70-99); Osmolality,Calculated 290 (280-300); Potassium 4.7 mEq/L (3.5-4.5); Sodium 136 mEq/L (136-145); eGFR For African Americans > 60 (> 60); eGFR For Non-African Americans > 60 (> 60)
[2016-05-05] MEDS: Lacri-Lube 3.5 GM TUBE BOTH EYES SCH ×6 (04:12→23:28)
[2016-05-05 04:19] LABS: Platelet Estimate Normal (Normal)
[2016-05-05] MEDS: FentaNYL (PF) 3,000 MCG in 0.9 % Sodium Chloride 240 ML IVC SCH ×3 (04:25→23:27)
[2016-05-05] MEDS: Norepinephrine 4 MG in D5% in Water 250 ML IVC SCH (04:43)
[2016-05-05] MEDS: Vancomycin 1,000 MG in D5% in Water 250 ML IVPB SCH ×2 (05:07→17:05)
[2016-05-05 05:24] LABS: ABG Base Excess -4.7 mEq/L (-2.0 to 3.0); ABG HCO3 20.4 mEQ/L (21-27); ABG Oxygen Saturation 99 % (95-98); ABG PCO2 37 mmHg (35-45); ABG PH 7.35 pH Units (7.32-7.45); ABG PO2 136 mmHg (85-104); ABG TCO2 21.5 mEq/L (20-26)
[2016-05-05 05:25] LABS: Blood Gas FiO2 30 %
--- NOTE | 2016-05-05 07:04 | Pulmonology Progress Note ---
<George Jaquez - Last Filed: 05/05/16 12:05> Date of Encounter: 05/05/16 Time of Encounter: 07:04 Assessment and Plan (1) Acute respiratory distress syndrome (ARDS) Current Visit: Yes Status: Acute Patient was brought in from [facility] with acute respiratory distress. CXR revealed bilateral hazy parenchymal disease predominantly in the perihilar regions favoring edema. Influenza A positive, MRSA bacteremia, sputum cultures reveal gram positive cocci Echo revealed EF of 45-50% Vent settings at Tv 350mL, rate 16, FiO2 30%, and PEEP 5. ABG this morning pH 7.35, pCO2 37, pO2 136, and 99%. Acute respiratory failure secondary to ARDS due to possible Staph pneumonia, influenza A, and MRSA bacteremia. Continue with Vancomycin (d3) and Oseltamavir (d3) Continue with duonebs q4h and solumedrol q8h Patient was reintubated due to worsening sats after extubation. Current Vent settings at Tv 380, rate 16, FiO2 30%, and PEEP 5. Continue ventilator support. (2) Acute respiratory failure Current Visit: Yes Status: Acute Continue per plan in assessment above. Qualifiers: Respiratory failure complication: hypoxia and hypercapnia Qualified Code(s) : J96.01 - Acute respiratory failure with hypoxia; J96.02 - Acute respiratory failure with hypercapnia (3) Pneumonia Current Visit: Yes Status: Acute [facility] of [facility] due to dementia and schizophrenia. MRSA bacteremia and gram positive cocci sputum culture. Continue with Vancomycin (d3) Qualifiers: Pneumonia type: due to methicillin-resistant Staphylococcus aureus (MRSA) Laterality: right Lung location: lower lobe of lung Qualified Code(s): J15.212 - Pneumonia due to Methicillin resistant Staphylococcus aureus (4) Influenza A Current Visit: Yes Status: Acute Continue with Oseltamavir (d3) (5) Sepsis Current Visit: Yes Status: Acute Bacteremia with gram positive bacteria, influenza A pneumonia, and MRSA pneumonia. Leukocytopenia of 1.5 this morning on labs. Blood cultures returned gram positive cocci in clusters, staphylococcus, and with methicillin resistance. Sputum cultures positive for gram positive cocci Continue with Vancomycin (d3) and Oseltamavir (d3). Qualifiers: Sepsis type: methicillin resistant Staphylococcus aureus Qualified Code(s) : A41.02 - Sepsis due to Methicillin resistant Staphylococcus aureus (6) Back pain Current Visit: Yes Status: Acute After extubation, patient was in significant distress complaining of back pain. Patient has several stress ulcers over back and surgical scar. Patient appeared slightly more comfortable while lying on her side, but due to inability to tolerate extubation, patient had to be reintubated. CT C/T/L spine with contrast ordered to rule out epidural abscess. (7) Rheumatoid arthritis involving both hands with positive rheumatoid factor Current Visit: Yes Status: Chronic Continue hydroxychlooquine and pain management. History of assisted steroid use, tapered off about 1 month ago. Random cortisol returned low normal at 3.5 Hydrocortisone q8h ordered. (8) DVT prophylaxis Current Visit: Yes Status: Acute heparin for dvt ppx. Subjective Principal diagnosis: Acute Resp Failure, Influenza A, MRSA bacteremia, Sepsis Interval history: Patient alert, awake, spontaneous eye opening, moves all extremities. Denies fevers, chills, sweats, changes in vision or hearing, chest pain, shortness of breath, abdominal pain, weakness, or loss of sensation. Attempted to extubate around 10am. Initially did well with some complaint of back pain. After about 15 minutes patient became very agitated and was saying she was unable to breathe and was increasingly more uncomfortable. She had inspirator stridor and was using accessory muscles to breathe, though was satting well in the 90s on room air. Patient's sats eventually started dropping in the 80s, venturi mask was unable to bring up sats, and decision to intubate was made. Patient reintubated. Objective PUL Vital signs: Last Vital Signs Temp 98.4 F 05/05/16 04:00 Pulse 65 05/05/16 06:00 Resp 22 05/05/16 06:17 BP 117/52 05/05/16 06:17 Pulse Ox 99 05/05/16 06:17 General appearance: no acute distress, alert, other (comfortable on ventilator, spontaneous eye opening and extremity movements) Eyes: nonicteric Neck: supple, no lymphadenopathy, no JVD Effort: normal Auscultation: bilateral: rhonchi Cardiovascular: regular rate and rhythm Gastrointestinal: normoactive bowel sounds, soft, non-tender, non-distended Integumentary: normal, other (multiple stress ulcers over back at various healing stages, surgical scar over back and knees noted.) Extremities: no cyanosis, no edema, pink and warm, pulses normal, other (ra changes to feet) Musculoskeletal: no deformities, ROM normal non-focal exam, pupils equal and round, motor strength normal and symmetric Ventilator Settings Ventilator Settings: Ventilator Settings, Last 8 Hours Ventilator Mode VC+ Ventilator Mode VC+ Ventilator Mode VC+ Ventilator Mode VC+ Ventilator Mode VC+ Ventilator Mode VC+ Ventilator Mode VC+ Ventilator Mode VC+ Ventilator Mode VC+ Ventilator Mode VC+ Ventilator Mode VC+ Ventilator Tidal Volume 350 Setting Ventilator Tidal Volume 350 Setting Ventilator Tidal Volume 350 Setting Ventilator Tidal Volume 350 Setting Ventilator Tidal Volume 350 Setting Ventilator Tidal Volume 350 Setting Ventilator Tidal Volume 350 Setting Ventilator Tidal Volume 350 Setting Ventilator Tidal Volume 350 Setting Ventilator Tidal Volume 350 Setting Ventilator Tidal Volume 350 Setting Ventilator Respiratory Rate 16 Setting Ventilator Respiratory Rate 16 Setting Ventilator Respiratory Rate 16 Setting Ventilator Respiratory Rate 16 Setting Ventilator Respiratory Rate 16 Setting Ventilator Respiratory Rate 16 Setting Ventilator Respiratory Rate 16 Setting Ventilator Respiratory Rate 16 Setting Ventilator Respiratory Rate 16 Setting Ventilator Respiratory Rate 16 Setting Ventilator Respiratory Rate 16 Setting Actual Respiratory Rate 22 Actual Respiratory Rate 22 Actual Respiratory Rate 22 Actual Respiratory Rate 22 Actual Respiratory Rate 22 Actual Respiratory Rate 22 Actual Respiratory Rate 22 Actual Respiratory Rate 22 Actual Respiratory Rate 21 Actual Respiratory Rate 22 Positive End Expiratory 5 Pressure Positive End Expiratory 5 Pressure Positive End Expiratory 5 Pressure Positive End Expiratory 5 Pressure Positive End Expiratory 5 Pressure Positive End Expiratory 5 Pressure Positive End Expiratory 5 Pressure Positive End Expiratory 5 Pressure Positive End Expiratory 5 Pressure Positive End Expiratory 5 Pressure Positive End Expiratory 5 Pressure Peak Inspiratory Airway 15 Pressure Peak Inspiratory Airway 14 Pressure Peak Inspiratory Airway 14 Pressure Peak Inspiratory Airway 13 Pressure Peak Inspiratory Airway 13 Pressure Peak Inspiratory Airway 14 Pressure Peak Inspiratory Airway 16 Pressure Peak Inspiratory Airway 16 Pressure Peak Inspiratory Airway 13 Pressure Peak Inspiratory Airway 14 Pressure Results - Laboratory Findings CBC and BMP: 05/05/16 03:20 05/05/16 03:20 ABG ABG pH 7.35 pH Units (7.32-7.45) 05/05/16 05:10 ABG pCO2 37 mmHg (35-45) 05/05/16 05:10 ABG pO2 136 mmHg (85-104) H 05/05/16 05:10 ABG O2 Saturation 99 % (95-98) H 05/05/16 05:10 PT/INR, D-dimer PT 12.3 Seconds (9.4-12.1) H 05/02/16 17:44 Abnormal lab findings: Abnormal lab results WBC 1.5 K/mcL (4.3-11.1) L 05/05/16 03:20 RBC 3.47 M/mcL (3.82-4.97) L 05/05/16 03:20 Hgb 9.5 g/dL (11.5-15.4) L 05/05/16 03:20 Hct 30.7 % (35.3-44.9) L 05/05/16 03:20 MCH 27.4 pg (28.0-33.3) L 05/05/16 03:20 MCHC 30.9 g/dL (31.6-35.5) L 05/05/16 03:20 RDW 15.2 % (11.5-14.5) H 05/05/16 03:20 MPV 9.0 fL (9.4-12.4) L 05/05/16 03:20 Band Neutrophils % 22.0 % (0-4) H 05/04/16 06:43 Metamyelocytes % 1.0 % (0) H 05/02/16 18:08 Myelocytes % 1.0 % (0) H 05/02/16 18:08 Promyelocytes % 2.0 % (0) H 05/04/16 03:30 Neutrophils # 0.6 K/mcL (1.6-8.9) L 05/05/16 03:20 Lymphocytes # 0.5 K/mcL (0.6-4.6) L 05/05/16 03:20 PT 12.3 Seconds (9.4-12.1) H 05/02/16 17:44 APTT 46.7 Seconds (26.0-36.0) H 05/02/16 17:44 ABG pO2 136 mmHg (85-104) H 05/05/16 05:10 ABG HCO3 20.4 mEQ/L (21-27) L 05/05/16 05:10 ABG O2 Saturation 99 % (95-98) H 05/05/16 05:10 ABG Base Excess -4.7 mEq/L (-2.0 to 3.0) L 05/05/16 05:10 VBG pH 7.07 pH Units (7.32-7.42) L* 05/02/16 18:00 VBG pCO2 67 mmHg (41-51) H 05/02/16 18:00 VBG pO2 66 mmHg (25-40) H 05/02/16 18:00 VBG HCO3 19.4 mEq/L (21-27) L 05/02/16 18:00 Potassium 4.7 mEq/L (3.5-4.5) H 05/05/16 03:20 Chloride 111 mEq/L (98-109) H 05/05/16 03:20 BUN 26 mg/dL (7-20) H 05/05/16 03:20 BUN/Creatinine Ratio 44 (6-26) H 05/05/16 03:20 Glucose 151 mg/dL (70-99) H 05/05/16 03:20 POC Glucose 148 (58-89) H 05/05/16 03:52 Calcium 8.2 mg/dL (8.6-10.8) L 05/05/16 03:20 Phosphorus 5.1 mg/dL (2.3-4.7) H 05/02/16 17:44 Total Bilirubin 2.1 mg/dL (0.2-1.2) H 05/03/16 05:15 Direct Bilirubin 1.7 mg/dL (0.0-0.5) H 05/02/16 17:44 AST 43 Units/L (5-34) H 05/03/16 05:15 Alkaline Phosphatase 1115 Units/L (38-126) H 05/03/16 05:15 C-Reactive Protein 53 mg/L (Less than 5) H 05/02/16 17:44 Albumin 2.1 g/dL (3.5-5.0) L 05/03/16 05:15 Globulin 5.1 g/dL (2.4-3.5) H 05/03/16 05:15 Albumin/Globulin Ratio 0.4 (1.1-2.2) L 05/03/16 05:15 Urine Clarity Turbid (Clear) A 05/02/16 17:25 Urine Protein 100 mg/dL (Neg-Trace) H 05/02/16 17:25 Urine Blood Large (Negative) H 05/02/16 17:25 Urine Bilirubin Small (Negative) H 05/02/16 17:25 Urine Microscopic RBC TNTC per hpf (0-3) H 05/02/16 17:25 Urine Microscopic WBC 3-5 per hpf (0-3) H 05/02/16 17:25 Ur Squamous Epith Cells Many per lpf (None-Few) H 05/02/16 17:25 Hyaline Casts Many per lpf (None-Few) H 05/02/16 17:25 Influenza A (H3) PCR DETECTED (Not Detect) A 05/03/16 10:42 Staphylococcus sp PCR DETECTED (Not Detect) A 05/02/16 18:08 MRS (TEM-PCR) DETECTED (Not Detect) A 05/02/16 18:08 - Microbiology Findings Microbiology Findings: Microbiology, Last 48 Hours 05/03/16 04:40 Sputum Culture - Preliminary Sputum Gram Positive Cocci - Clinical Findings Intake & Output: Intake & Output 05/04/16 05/04/16 05/05/16 15:59 23:59 07:59 Intake Total 226 / 226 981 / 981 947 / 947 Output Total 375 / 375 850 / 850 200 / 200 Balance -149 / -149 131 / 131 747 / 747 Consult Discharge Plan - Plan Referrals: NO,PCP [Primary Care Provider] - <Chris Camargo W - Last Filed: 05/05/16 14:57> Objective PUL Vital signs: Last Vital Signs Temp 98.4 F 05/05/16 07:10 Pulse 67 05/05/16 08:25 Resp 7 05/05/16 08:25 BP 109/52 05/05/16 08:25 Pulse Ox 99 05/05/16 08:25 Ventilator Settings Ventilator Settings: Ventilator Settings, Last 8 Hours Ventilator Mode CPAP Ventilator Mode CPAP Ventilator Mode VC+ Ventilator Mode VC+ Ventilator Mode VC+ Ventilator Mode VC+ Ventilator Mode VC+ Ventilator Mode VC+ Ventilator Mode VC+ Ventilator Tidal Volume 350 Setting Ventilator Tidal Volume 350 Setting Ventilator Tidal Volume 350 Setting Ventilator Tidal Volume 350 Setting Ventilator Tidal Volume 350 Setting Ventilator Tidal Volume 350 Setting Ventilator Tidal Volume 350 Setting Ventilator Tidal Volume 350 Setting Ventilator Respiratory Rate 16 Setting Ventilator Respiratory Rate 16 Setting Ventilator Respiratory Rate 16 Setting Ventilator Respiratory Rate 16 Setting Ventilator Respiratory Rate 16 Setting Ventilator Respiratory Rate 16 Setting Ventilator Respiratory Rate 16 Setting Actual Respiratory Rate 11 Actual Respiratory Rate 6 Actual Respiratory Rate 22 Actual Respiratory Rate 22 Actual Respiratory Rate 22 Actual Respiratory Rate 22 Actual Respiratory Rate 22 Actual Respiratory Rate 22 Positive End Expiratory 5 Pressure Positive End Expiratory 5 Pressure Positive End Expiratory 5 Pressure Positive End Expiratory 5 Pressure Positive End Expiratory 5 Pressure Positive End Expiratory 5 Pressure Positive End Expiratory 5 Pressure Positive End Expiratory 5 Pressure Positive End Expiratory 5 Pressure Peak Inspiratory Airway 10 Pressure Peak Inspiratory Airway 11 Pressure Peak Inspiratory Airway 15 Pressure Peak Inspiratory Airway 14 Pressure Peak Inspiratory Airway 14 Pressure Peak Inspiratory Airway 13 Pressure Peak Inspiratory Airway 13 Pressure Peak Inspiratory Airway 14 Pressure Results - Laboratory Findings CBC and BMP: 05/05/16 03:20 05/05/16 03:20 ABG ABG pH 7.35 pH Units (7.32-7.45) 05/05/16 05:10 ABG pCO2 37 mmHg (35-45) 05/05/16 05:10 ABG pO2 136 mmHg (85-104) H 05/05/16 05:10 ABG O2 Saturation 99 % (95-98) H 05/05/16 05:10 PT/INR, D-dimer PT 12.3 Seconds (9.4-12.1) H 05/02/16 17:44 Abnormal lab findings: Abnormal lab results WBC 1.5 K/mcL (4.3-11.1) L 05/05/16 03:20 RBC 3.47 M/mcL (3.82-4.97) L 05/05/16 03:20 Hgb 9.5 g/dL (11.5-15.4) L 05/05/16 03:20 Hct 30.7 % (35.3-44.9) L 05/05/16 03:20 MCH 27.4 pg (28.0-33.3) L 05/05/16 03:20 MCHC 30.9 g/dL (31.6-35.5) L 05/05/16 03:20 RDW 15.2 % (11.5-14.5) H 05/05/16 03:20 MPV 9.0 fL (9.4-12.4) L 05/05/16 03:20 Band Neutrophils % 22.0 % (0-4) H 05/04/16 06:43 Metamyelocytes % 1.0 % (0) H 05/02/16 18:08 Myelocytes % 1.0 % (0) H 05/02/16 18:08 Promyelocytes % 2.0 % (0) H 05/04/16 03:30 Neutrophils # 0.6 K/mcL (1.6-8.9) L 05/05/16 03:20 Lymphocytes # 0.5 K/mcL (0.6-4.6) L 05/05/16 03:20 PT 12.3 Seconds (9.4-12.1) H 05/02/16 17:44 APTT 46.7 Seconds (26.0-36.0) H 05/02/16 17:44 ABG pO2 136 mmHg (85-104) H 05/05/16 05:10 ABG HCO3 20.4 mEQ/L (21-27) L 05/05/16 05:10 ABG O2 Saturation 99 % (95-98) H 05/05/16 05:10 ABG Base Excess -4.7 mEq/L (-2.0 to 3.0) L 05/05/16 05:10 VBG pH 7.07 pH Units (7.32-7.42) L* 05/02/16 18:00 VBG pCO2 67 mmHg (41-51) H 05/02/16 18:00 VBG pO2 66 mmHg (25-40) H 05/02/16 18:00 VBG HCO3 19.4 mEq/L (21-27) L 05/02/16 18:00 Potassium 4.7 mEq/L (3.5-4.5) H 05/05/16 03:20 Chloride 111 mEq/L (98-109) H 05/05/16 03:20 BUN 26 mg/dL (7-20) H 05/05/16 03:20 BUN/Creatinine Ratio 44 (6-26) H 05/05/16 03:20 Glucose 151 mg/dL (70-99) H 05/05/16 03:20 POC Glucose 148 (58-89) H 05/05/16 03:52 Calcium 8.2 mg/dL (8.6-10.8) L 05/05/16 03:20 Phosphorus 5.1 mg/dL (2.3-4.7) H 05/02/16 17:44 Total Bilirubin 2.1 mg/dL (0.2-1.2) H 05/03/16 05:15 Direct Bilirubin 1.7 mg/dL (0.0-0.5) H 05/02/16 17:44 AST 43 Units/L (5-34) H 05/03/16 05:15 Alkaline Phosphatase 1115 Units/L (38-126) H 05/03/16 05:15 C-Reactive Protein 53 mg/L (Less than 5) H 05/02/16 17:44 Albumin 2.1 g/dL (3.5-5.0) L 05/03/16 05:15 Globulin 5.1 g/dL (2.4-3.5) H 05/03/16 05:15 Albumin/Globulin Ratio 0.4 (1.1-2.2) L 05/03/16 05:15 Urine Clarity Turbid (Clear) A 05/02/16 17:25 Urine Protein 100 mg/dL (Neg-Trace) H 05/02/16 17:25 Urine Blood Large (Negative) H 05/02/16 17:25 Urine Bilirubin Small (Negative) H 05/02/16 17:25 Urine Microscopic RBC TNTC per hpf (0-3) H 05/02/16 17:25 Urine Microscopic WBC 3-5 per hpf (0-3) H 05/02/16 17:25 Ur Squamous Epith Cells Many per lpf (None-Few) H 05/02/16 17:25 Hyaline Casts Many per lpf (None-Few) H 05/02/16 17:25 Influenza A (H3) PCR DETECTED (Not Detect) A 05/03/16 10:42 Staphylococcus sp PCR DETECTED (Not Detect) A 05/02/16 18:08 MRS (TEM-PCR) DETECTED (Not Detect) A 05/02/16 18:08 - Microbiology Findings Microbiology Findings: Microbiology, Last 48 Hours 05/03/16 04:40 Sputum Culture - Preliminary Sputum Gram Positive Cocci - Clinical Findings Intake & Output: Intake & Output 05/04/16 05/05/16 05/05/16 23:59 07:59 15:59 Intake Total 981 / 981 947 / 947 Output Total 850 / 850 400 / 400 Balance 131 / 131 547 / 547 - Attending Attestation I examined this patient and my medical decision-making was reviewed with the POOL TABLE OPERATOR/PA/Advanced Practice Nurse/Resident Physician. I agree with the documented findings, disposition and treatment plan as described except to the extent set forth below. The high probability of a clinically significant, sudden or life threatening deterioration of the Respiratory system required my full and direct attention, intervention and personal management. The aggregate critical care time was [35] minutes. Patient seen and examined at bedside Labs, radiology, chart personally reviewed. All lines examined without evidence of infection. Neuropsych:intubated and sedated. Goal RASS (-) 2. wean benzo as able. cont precedex. chronic pain cont fentanyl Pulm: Acute hypoxic respiratory failure to Influenza PNA cont LTV ventilatory strategy. Peak/Plat acceptable treat for pneumonia. COPD on Steroids and BD's. Extubation today after very good weaning parameters unfortunately was complicated by stridor likely upper airway edema/inflammation related to endotracheal tube and intubation. Given racemic epinephrine and methylprednisolone without improvement patient continued to deteriorate and required reintubation. Will check spontaneous breathing trial tomorrow along with leak test. Cards: No STEMI on ECG trop wnl.resolved Distributive shock (off levophed today ) ECHO shows EF of 55% (approx) Goal MAP >60. FEN-GI: cont Enteral Feedings. Cont GI prophylaxis. 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 Good UOP ID: Influenza A + CONT ostelamivir. with MRSA superinfection. cont Vanc. Heme/Onc: Leukopenia likely s/t acute sepsis.with underlying RA. Cont DVT prophylaxis with heparin. H/H stable Endo: Glucose monitored. Low random cortisol started stress dose hydrocortisone Integ/MSK: skin care per ICU protocol. Severe spine pain with likely MRSA infection r/o Epidural abcess. RHEUM: Chronic RA on hydroxychlorqine recently tapered off steroids (1 month ago ). CODE: Full
[2016-05-05] MEDS: Chlorhexidine Rinse 15 ML MOUTHWASH MM SCH ×2 (08:43→20:59)
[2016-05-05] MEDS: Hydrocortisone Sodium Succ 100 MG/2 ML VIAL IVP SCH ×3 (08:43→23:05)
[2016-05-05] MEDS: Pantoprazole 40 MG VIAL IVPB SCH (08:43)
[2016-05-05] MEDS: *HR* Heparin 5,000 UNIT/ML VIAL SQ SCH ×3 (08:45→23:05)
[2016-05-05] MEDS ORDERED: methylPREDNISolone 125 MG/2 ML VIAL ONE (10:19)
[2016-05-05] MEDS ORDERED: Racepinephrine Neb 0.5 ML VIAL IH ONE ×2 (10:21→10:39)
[2016-05-05] MEDS ORDERED: *HR* LORazepam 2 MG/ML VIAL ONE (10:22)
[2016-05-05] MEDS ORDERED: *HR* LORazepam 2 MG/ML VIAL IVP ONE (10:50)
--- NOTE | 2016-05-05 10:53 | Procedure Note ---
Date of procedure: 05/05/16 Pre-op diagnosis: Respiratory Failure Post-op diagnosis: same Procedure: Time out was deffered as the procedure was emergent.. The patient was placed in a flat position. Sedation was obtained using . The patient was easily ventilated using an Ambu bag. A GLIDESCOPE MAC 3/ BLADE was used and inserted into the oropharynx at which time there was a Grade 2 view of the vocal cords. A 7.0-setswana endotracheal tube was inserted and visualized going through the vocal cords on the first attempt. The stylette was removed. Colorimetric change was visualized on the CO2 meter. Breath sounds were heard in both lung mahoney equally. The endotracheal tube was placed at 24 cm, measured at the lips A chest x-ray was ordered and is pending at this time to assess for pneumothorax and verify endotracheal tube placement. Surgeon: Chris Camargo Pathology: none sent Condition: critical Disposition: no change
[2016-05-05 12:59] LABS: ABG Base Excess -4.8 mEq/L (-2.0 to 3.0); ABG HCO3 20.5 mEQ/L (21-27); ABG Oxygen Saturation 98 % (95-98); ABG PCO2 38 mmHg (35-45); ABG PH 7.34 pH Units (7.32-7.45); ABG PO2 110 mmHg (85-104); ABG TCO2 21.7 mEq/L (20-26)
[2016-05-05 13:00] LABS: Blood Gas FiO2 30 %; Blood Gas PEEP 5 cm H2O; Blood Gas Respiration Rate 16; Blood Gas VT 380 cc
[2016-05-05] MEDS ORDERED: methylPREDNISolone 125 MG/2 ML VIAL IVP ONE (13:08)
[2016-05-05] MEDS ORDERED: 0.9 % Sodium Chloride 1,000 ML ONE (16:51)
[2016-05-05] MEDS ORDERED: 0.9 % Sodium Chloride 500 ML IVC ONE (17:08)
[2016-05-06] MEDS: Ipratropium/Albuterol Neb 3 ML IH SCH ×5 (03:50→20:02)
[2016-05-06] MEDS: Norepinephrine 4 MG in D5% in Water 250 ML IVC SCH (03:58)
[2016-05-06 03:59] LABS: Hematocrit 30.4 % (35.3-44.9); Hemoglobin 9.3 g/dL (11.5-15.4); Immature Granulocytes % 1.2 % (0-4); Lymphocytes # 0.5 K/mcL (0.6-4.6); Lymphocytes % 20.6 %; Mean Corpuscular HGB Conc 30.6 g/dL (31.6-35.5); Mean Corpuscular Hemoglobin 27.4 pg (28.0-33.3); Mean Corpuscular Volume 89.7 fL (83.0-100.0); Mean Platelet Volume 9.3 fL (9.4-12.4); Monocytes # 0.6 K/mcL (0.0-1.3); Monocytes % 23.4 %; Neutrophils # 1.4 K/mcL (1.6-8.9); Platelet Count 233 K/mcL (140-400); Red Blood Count 3.39 M/mcL (3.82-4.97); Red Cell Distribution Width 14.8 % (11.5-14.5); Segmented Neutrophils % 54.8 %
[2016-05-06 04:14] LABS: BUN/Creatinine Ratio 55 (6-26); Blood Urea Nitrogen 31 mg/dL (7-20); Calcium 8.1 mg/dL (8.6-10.8); Carbon Dioxide 18 mEq/L (19-29); Chloride 114 mEq/L (98-109); Glucose 132 mg/dL (70-99); Osmolality,Calculated 294 (280-300); Potassium 4.8 mEq/L (3.5-4.5); Sodium 138 mEq/L (136-145); eGFR For African Americans > 60 (> 60); eGFR For Non-African Americans > 60 (> 60)
[2016-05-06 04:19] LABS: Platelet Estimate Normal (Normal)
[2016-05-06] MEDS: Lacri-Lube 3.5 GM TUBE BOTH EYES SCH ×5 (04:25→20:20)
[2016-05-06] MEDS: Insulin LISPRO 300 UNITS/3 ML VIAL SQ SCH ×5 (04:25→20:17)
[2016-05-06 05:58] LABS: ABG Base Excess -4.2 mEq/L (-2.0 to 3.0); ABG Oxygen Saturation 98 % (95-98); ABG PCO2 38 mmHg (35-45); ABG PH 7.35 pH Units (7.32-7.45); ABG PO2 107 mmHg (85-104); ABG TCO2 22.2 mEq/L (20-26)
[2016-05-06 06:01] LABS: Blood Gas FiO2 30 %
[2016-05-06] MEDS: Vancomycin 1,000 MG in D5% in Water 250 ML IVPB SCH ×2 (06:05→16:00)
[2016-05-06] MEDS: *HR* Heparin 5,000 UNIT/ML VIAL SQ SCH ×3 (06:05→23:14)
--- NOTE | 2016-05-06 09:19 | Pulmonology Progress Note ---
<Cale Rogers - Last Filed: 05/06/16 17:19> Date of Encounter: 05/06/16 Time of Encounter: 09:18 Assessment and Plan (1) Acute respiratory distress syndrome (ARDS) Current Visit: Yes Status: Acute Patient was brought in from [facility] with acute respiratory distress. CXR revealed bilateral hazy parenchymal disease predominantly in the perihilar regions favoring edema. Influenza A positive, MRSA bacteremia, sputum cultures reveal gram positive cocci Echo revealed EF of 45-50% Vent settings at Tv 450mL(increased from 350, rate 12, FiO2 30%, and PEEP 5. ABG this morning pH 7.35, pCO2 38, pO2 107, and 98%. Repeat pH 7.35, pCO2 38, pO2 95, and 97%. Acute respiratory failure secondary to ARDS due to possible Staph pneumonia, influenza A, and MRSA bacteremia. Continue with Vancomycin (d4) and Oseltamavir (d4). Continue with duonebs q4h Continue ventilator support. Requiring continuation of versed, propofol, and precedex for sedation. (2) Acute respiratory failure Current Visit: Yes Status: Acute Continue per plan in assessment above. Qualifiers: Respiratory failure complication: hypoxia and hypercapnia Qualified Code(s) : J96.01 - Acute respiratory failure with hypoxia; J96.02 - Acute respiratory failure with hypercapnia (3) Pneumonia Current Visit: Yes Status: Acute Patient of intermediate facility due to dementia and schizophrenia. MRSA bacteremia and gram positive cocci sputum culture. Continue with Vancomycin (d4) Qualifiers: Pneumonia type: due to methicillin-resistant Staphylococcus aureus (MRSA) Laterality: right Lung location: lower lobe of lung Qualified Code(s): J15.212 - Pneumonia due to Methicillin resistant Staphylococcus aureus (4) Influenza A Current Visit: Yes Status: Acute Continue with Oseltamavir (d4) (5) Sepsis Current Visit: Yes Status: Acute Bacteremia with gram positive bacteria, influenza A pneumonia, and MRSA pneumonia. Leukocytopenia of 2.5 (1.5 yesterday) on morning labs. Blood cultures returned gram positive cocci in clusters, staphylococcus, and with methicillin resistance. Sputum cultures positive for gram positive cocci Continue with Vancomycin (d4) and Oseltamavir (d4). Patient given 20mg lasix x 2 today with addition 100gm albumin. Qualifiers: Sepsis type: methicillin susceptible Staphylococcus aureus Qualified Code(s ): A41.01 - Sepsis due to Methicillin susceptible Staphylococcus aureus (6) Back pain Current Visit: Yes Status: Acute Patient has several stress ulcers over back and surgical scar. CT C/T/L spine with contrast ordered -negative for epidural abscess. Did show progressing periauricular erosions and joint space narrowing. (7) Rheumatoid arthritis involving both hands with positive rheumatoid factor Current Visit: Yes Status: Chronic Continue pain management. Home med- hydroxychloroquine, currently held. History of correction steroid use, tapered off about 1 month ago. Random cortisol returned low normal at 3.5 Hydrocortisone q8h ordered. (8) DVT prophylaxis Current Visit: Yes Status: Acute heparin for dvt ppx Subjective Principal diagnosis: Acute Resp Failure, Influenza A, MRSA bacteremia, Sepsis Interval history: Patient was re-intubated yesterday with decline in oxygen saturation. Quickly become restless during examination. Spontaneous eye opening, can move all extremities. Currently in soft restraints and sedated. Objective PUL Vital signs: Last Vital Signs Temp 97.7 F 05/06/16 04:00 Pulse 76 05/06/16 07:30 Resp 24 05/06/16 07:00 BP 99/57 05/06/16 07:00 Pulse Ox 100 05/06/16 07:00 General appearance: no acute distress, agitated (upon examination.), other ( spontaneous eye opening and extremity movements.) Eyes: nonicteric ENT: oropharynx dry Neck: supple, no JVD Effort: normal Auscultation: bilateral: diminished breath sounds Cardiovascular: regular rate and rhythm Gastrointestinal: normoactive bowel sounds, soft, tender (possible tender as withdraws from palpation (bowel regimen started)), non-distended Integumentary: decubitus ulcer (two ulceration on coccyx/buttock (stage 1 and 2 respectively), wound on right ankle (stage 2) ) Extremities: no cyanosis, no edema, no clubbing, pink and warm, other (RA changes to feet, specifically toes bilaterally.) Musculoskeletal: no deformities non-focal exam, pupils equal and round, unable to assess due to mental status ( sedation) anxious Ventilator Settings Ventilator Settings: Ventilator Settings, Last 8 Hours Ventilator Mode A/C Ventilator Mode A/C Ventilator Mode A/C Ventilator Mode A/C Ventilator Mode A/C Ventilator Mode A/C Ventilator Mode A/C Ventilator Mode A/C Ventilator Mode A/C Ventilator Tidal Volume 380 Setting Ventilator Tidal Volume 380 Setting Ventilator Tidal Volume 380 Setting Ventilator Tidal Volume 380 Setting Ventilator Tidal Volume 380 Setting Ventilator Tidal Volume 380 Setting Ventilator Tidal Volume 380 Setting Ventilator Tidal Volume 380 Setting Ventilator Tidal Volume 380 Setting Ventilator Respiratory Rate 16 Setting Ventilator Respiratory Rate 16 Setting Ventilator Respiratory Rate 16 Setting Ventilator Respiratory Rate 16 Setting Ventilator Respiratory Rate 16 Setting Ventilator Respiratory Rate 16 Setting Ventilator Respiratory Rate 16 Setting Ventilator Respiratory Rate 16 Setting Ventilator Respiratory Rate 16 Setting Actual Respiratory Rate 22 Actual Respiratory Rate 24 Actual Respiratory Rate 24 Actual Respiratory Rate 21 Actual Respiratory Rate 24 Actual Respiratory Rate 21 Actual Respiratory Rate 17 Actual Respiratory Rate 16 Positive End Expiratory 5 Pressure Positive End Expiratory 5 Pressure Positive End Expiratory 5 Pressure Positive End Expiratory 5 Pressure Positive End Expiratory 5 Pressure Positive End Expiratory 5 Pressure Positive End Expiratory 5 Pressure Positive End Expiratory 5 Pressure Positive End Expiratory 5 Pressure Peak Inspiratory Airway 24 Pressure Peak Inspiratory Airway 19 Pressure Peak Inspiratory Airway 19 Pressure Peak Inspiratory Airway 19 Pressure Peak Inspiratory Airway 22 Pressure Peak Inspiratory Airway 19 Pressure Peak Inspiratory Airway 19 Pressure Peak Inspiratory Airway 23 Pressure Results - Laboratory Findings CBC and BMP: 05/06/16 03:45 05/06/16 03:45 ABG ABG pH 7.35 pH Units (7.32-7.45) 05/06/16 05:45 ABG pCO2 38 mmHg (35-45) 05/06/16 05:45 ABG pO2 107 mmHg (85-104) H 05/06/16 05:45 ABG O2 Saturation 98 % (95-98) 05/06/16 05:45 PT/INR, D-dimer PT 12.3 Seconds (9.4-12.1) H 05/02/16 17:44 Abnormal lab findings: Abnormal lab results WBC 2.5 K/mcL (4.3-11.1) L D 05/06/16 03:45 RBC 3.39 M/mcL (3.82-4.97) L 05/06/16 03:45 Hgb 9.3 g/dL (11.5-15.4) L 05/06/16 03:45 Hct 30.4 % (35.3-44.9) L 05/06/16 03:45 MCH 27.4 pg (28.0-33.3) L 05/06/16 03:45 MCHC 30.6 g/dL (31.6-35.5) L 05/06/16 03:45 RDW 14.8 % (11.5-14.5) H 05/06/16 03:45 MPV 9.3 fL (9.4-12.4) L 05/06/16 03:45 Band Neutrophils % 22.0 % (0-4) H 05/04/16 06:43 Metamyelocytes % 1.0 % (0) H 05/02/16 18:08 Myelocytes % 1.0 % (0) H 05/02/16 18:08 Promyelocytes % 2.0 % (0) H 05/04/16 03:30 Neutrophils # 1.4 K/mcL (1.6-8.9) L 05/06/16 03:45 Lymphocytes # 0.5 K/mcL (0.6-4.6) L 05/06/16 03:45 PT 12.3 Seconds (9.4-12.1) H 05/02/16 17:44 APTT 46.7 Seconds (26.0-36.0) H 05/02/16 17:44 ABG pO2 107 mmHg (85-104) H 05/06/16 05:45 ABG Base Excess -4.2 mEq/L (-2.0 to 3.0) L 05/06/16 05:45 VBG pH 7.07 pH Units (7.32-7.42) L* 05/02/16 18:00 VBG pCO2 67 mmHg (41-51) H 05/02/16 18:00 VBG pO2 66 mmHg (25-40) H 05/02/16 18:00 VBG HCO3 19.4 mEq/L (21-27) L 05/02/16 18:00 Potassium 4.8 mEq/L (3.5-4.5) H 05/06/16 03:45 Chloride 114 mEq/L (98-109) H 05/06/16 03:45 Carbon Dioxide 18 mEq/L (19-29) L 05/06/16 03:45 BUN 31 mg/dL (7-20) H 05/06/16 03:45 Creatinine 0.56 mg/dL (0.57-1.11) L 05/06/16 03:45 BUN/Creatinine Ratio 55 (6-26) H 05/06/16 03:45 Glucose 132 mg/dL (70-99) H 05/06/16 03:45 POC Glucose 106 (58-89) H 05/05/16 23:09 Calcium 8.1 mg/dL (8.6-10.8) L 05/06/16 03:45 Phosphorus 5.1 mg/dL (2.3-4.7) H 05/02/16 17:44 Total Bilirubin 2.1 mg/dL (0.2-1.2) H 05/03/16 05:15 Direct Bilirubin 1.7 mg/dL (0.0-0.5) H 05/02/16 17:44 AST 43 Units/L (5-34) H 05/03/16 05:15 Alkaline Phosphatase 1115 Units/L (38-126) H 05/03/16 05:15 C-Reactive Protein 53 mg/L (Less than 5) H 05/02/16 17:44 Albumin 2.1 g/dL (3.5-5.0) L 05/03/16 05:15 Globulin 5.1 g/dL (2.4-3.5) H 05/03/16 05:15 Albumin/Globulin Ratio 0.4 (1.1-2.2) L 05/03/16 05:15 Procalcitonin 0.16 ng/mL (<=0.10) H 05/02/16 17:44 Urine Clarity Turbid (Clear) A 05/02/16 17:25 Urine Protein 100 mg/dL (Neg-Trace) H 05/02/16 17:25 Urine Blood Large (Negative) H 05/02/16 17:25 Urine Bilirubin Small (Negative) H 05/02/16 17:25 Urine Microscopic RBC TNTC per hpf (0-3) H 05/02/16 17:25 Urine Microscopic WBC 3-5 per hpf (0-3) H 05/02/16 17:25 Ur Squamous Epith Cells Many per lpf (None-Few) H 05/02/16 17:25 Hyaline Casts Many per lpf (None-Few) H 05/02/16 17:25 Influenza A (H3) PCR DETECTED (Not Detect) A 05/03/16 10:42 Staphylococcus sp PCR DETECTED (Not Detect) A 05/02/16 18:08 MRS (TEM-PCR) DETECTED (Not Detect) A 05/02/16 18:08 - Microbiology Findings Microbiology Findings: Microbiology, Last 48 Hours 05/03/16 04:40 Sputum Culture - Final Sputum Staphylococcus aureus - Clinical Findings Intake & Output: Intake & Output 05/05/16 05/06/16 05/06/16 23:59 07:59 15:59 Intake Total 1219 / 1219 723 / 723 Output Total 600 / 600 200 / 200 Balance 619 / 619 523 / 523 Weight 58.1 kg Consult Discharge Plan - Plan Referrals: NO,PCP [Primary Care Provider] - <Marina Shen - Last Filed: 05/06/16 17:53> Objective PUL Vital signs: Last Vital Signs Temp 97.6 F 05/06/16 15:10 Pulse 71 05/06/16 17:00 Resp 15 05/06/16 17:27 BP 91/52 05/06/16 17:27 Pulse Ox 100 05/06/16 17:27 Ventilator Settings Ventilator Settings: Ventilator Settings, Last 8 Hours Ventilator Mode VC+ Ventilator Mode VC+ Ventilator Mode VC+ Ventilator Mode VC+ Ventilator Tidal Volume 450 Setting Ventilator Tidal Volume 450 Setting Ventilator Tidal Volume 450 Setting Ventilator Tidal Volume 450 Setting Ventilator Respiratory Rate 12 Setting Ventilator Respiratory Rate 12 Setting Ventilator Respiratory Rate 12 Setting Ventilator Respiratory Rate 12 Setting Actual Respiratory Rate 15 Actual Respiratory Rate 15 Actual Respiratory Rate 17 Actual Respiratory Rate 31 Positive End Expiratory 5 Pressure Positive End Expiratory 5 Pressure Positive End Expiratory 5 Pressure Positive End Expiratory 5 Pressure Peak Inspiratory Airway 20 Pressure Peak Inspiratory Airway 17 Pressure Peak Inspiratory Airway 16 Pressure Peak Inspiratory Airway 20 Pressure Results - Laboratory Findings CBC and BMP: 05/06/16 03:45 05/06/16 03:45 ABG ABG pH 7.35 pH Units (7.32-7.45) 05/06/16 09:10 ABG pCO2 38 mmHg (35-45) 05/06/16 09:10 ABG pO2 95 mmHg (85-104) 05/06/16 09:10 ABG O2 Saturation 97 % (95-98) 05/06/16 09:10 PT/INR, D-dimer PT 12.3 Seconds (9.4-12.1) H 05/02/16 17:44 Abnormal lab findings: Abnormal lab results WBC 2.5 K/mcL (4.3-11.1) L D 05/06/16 03:45 RBC 3.39 M/mcL (3.82-4.97) L 05/06/16 03:45 Hgb 9.3 g/dL (11.5-15.4) L 05/06/16 03:45 Hct 30.4 % (35.3-44.9) L 05/06/16 03:45 MCH 27.4 pg (28.0-33.3) L 05/06/16 03:45 MCHC 30.6 g/dL (31.6-35.5) L 05/06/16 03:45 RDW 14.8 % (11.5-14.5) H 05/06/16 03:45 MPV 9.3 fL (9.4-12.4) L 05/06/16 03:45 Band Neutrophils % 22.0 % (0-4) H 05/04/16 06:43 Metamyelocytes % 1.0 % (0) H 05/02/16 18:08 Myelocytes % 1.0 % (0) H 05/02/16 18:08 Promyelocytes % 2.0 % (0) H 05/04/16 03:30 Neutrophils # 1.4 K/mcL (1.6-8.9) L 05/06/16 03:45 Lymphocytes # 0.5 K/mcL (0.6-4.6) L 05/06/16 03:45 PT 12.3 Seconds (9.4-12.1) H 05/02/16 17:44 APTT 46.7 Seconds (26.0-36.0) H 05/02/16 17:44 ABG Base Excess -4.2 mEq/L (-2.0 to 3.0) L 05/06/16 09:10 VBG pH 7.07 pH Units (7.32-7.42) L* 05/02/16 18:00 VBG pCO2 67 mmHg (41-51) H 05/02/16 18:00 VBG pO2 66 mmHg (25-40) H 05/02/16 18:00 VBG HCO3 19.4 mEq/L (21-27) L 05/02/16 18:00 Potassium 4.8 mEq/L (3.5-4.5) H 05/06/16 03:45 Chloride 114 mEq/L (98-109) H 05/06/16 03:45 Carbon Dioxide 18 mEq/L (19-29) L 05/06/16 03:45 BUN 31 mg/dL (7-20) H 05/06/16 03:45 Creatinine 0.56 mg/dL (0.57-1.11) L 05/06/16 03:45 BUN/Creatinine Ratio 55 (6-26) H 05/06/16 03:45 Glucose 132 mg/dL (70-99) H 05/06/16 03:45 POC Glucose 106 (58-89) H 05/05/16 23:09 Calcium 8.1 mg/dL (8.6-10.8) L 05/06/16 03:45 Phosphorus 5.1 mg/dL (2.3-4.7) H 05/02/16 17:44 Total Bilirubin 2.1 mg/dL (0.2-1.2) H 05/03/16 05:15 Direct Bilirubin 1.7 mg/dL (0.0-0.5) H 05/02/16 17:44 AST 43 Units/L (5-34) H 05/03/16 05:15 Alkaline Phosphatase 1115 Units/L (38-126) H 05/03/16 05:15 C-Reactive Protein 53 mg/L (Less than 5) H 05/02/16 17:44 Albumin 2.1 g/dL (3.5-5.0) L 05/03/16 05:15 Globulin 5.1 g/dL (2.4-3.5) H 05/03/16 05:15 Albumin/Globulin Ratio 0.4 (1.1-2.2) L 05/03/16 05:15 Procalcitonin 0.16 ng/mL (<=0.10) H 05/02/16 17:44 Urine Clarity Turbid (Clear) A 05/02/16 17:25 Urine Protein 100 mg/dL (Neg-Trace) H 05/02/16 17:25 Urine Blood Large (Negative) H 05/02/16 17:25 Urine Bilirubin Small (Negative) H 05/02/16 17:25 Urine Microscopic RBC TNTC per hpf (0-3) H 05/02/16 17:25 Urine Microscopic WBC 3-5 per hpf (0-3) H 05/02/16 17:25 Ur Squamous Epith Cells Many per lpf (None-Few) H 05/02/16 17:25 Hyaline Casts Many per lpf (None-Few) H 05/02/16 17:25 Influenza A (H3) PCR DETECTED (Not Detect) A 05/03/16 10:42 Staphylococcus sp PCR DETECTED (Not Detect) A 05/02/16 18:08 MRS (TEM-PCR) DETECTED (Not Detect) A 05/02/16 18:08 - Microbiology Findings Microbiology Findings: Microbiology, Last 48 Hours 05/03/16 04:40 Sputum Culture - Final Sputum Staphylococcus aureus - Clinical Findings Intake & Output: Intake & Output 05/06/16 05/06/16 05/06/16 07:59 15:59 23:59 Intake Total 973 / 973 600 / 600 200 / 200 Output Total 400 / 400 350 / 350 Balance 573 / 573 250 / 250 200 / 200 - Attending Attestation I examined this patient and my medical decision-making was reviewed with the WEIGHT AND TEST BAR CLERK/PA/Advanced Practice Nurse/Resident Physician. I agree with the documented findings, disposition and treatment plan as described except to the extent set forth below. Patient seen and examined. Labs, radiology, chart personally reviewed. Agree with resident's history and physical, assessment, plan with following comments: PRODUCTION STAFF WORKER: Patient does not follows commands, is intake requiring high levels of sedation for comfort and also for ventilator synchrony. Pulmonary: Acceptable oxygenation and ventilation. Due to abnormal ABG, changed ventilator setting and improvement in subsequent ABG. There is no plan for extubation and this time due to recent stridor and continue steroids and plan for spontaneous breathing trial tomorrow with cuff leak before extubation. Cardiovascular: She still requiring pressors to support her blood pressure. GI: Nutrition per dietary and GI prophylaxis per routine Heme: DVT prophylaxis per routine ID: Continue antibiotics and plan to de-escalation Renal; urine out put and renal funtion reviewed Endorcine: blood glucose is monitored Lines: all lines checked and no evidence of infections Skin: skin care to prevent pressure ulcers per nursing routine care I spent 35 min of Critical Care time with this patient. It involved decision making of high complexity to assess, manipulate, and support vital organ system failure and/or to prevent further life threatening deterioration of the patient' s condition. The time involved in the performance of separately reportable procedures was not counted toward critical care time.
[2016-05-06 09:26] LABS: ABG Base Excess -4.2 mEq/L (-2.0 to 3.0); ABG Oxygen Saturation 97 % (95-98); ABG PCO2 38 mmHg (35-45); ABG PH 7.35 pH Units (7.32-7.45); ABG PO2 95 mmHg (85-104); ABG TCO2 22.2 mEq/L (20-26)
[2016-05-06] MEDS: OLANZapine 5 MG TAB.RAPDIS PO SCH (09:33)
[2016-05-06] MEDS: Pantoprazole 40 MG VIAL IVPB SCH (09:33)
[2016-05-06] MEDS: Hydrocortisone Sodium Succ 100 MG/2 ML VIAL IVP SCH ×3 (09:34→23:14)
[2016-05-06] MEDS: Dexmedetomidine HCl 400 MCG/100 ML MLS IVC SCH ×2 (09:34→20:19)
[2016-05-06] MEDS: Chlorhexidine Rinse 15 ML MOUTHWASH MM SCH ×2 (09:34→20:17)
[2016-05-06 09:35] LABS: Blood Gas FiO2 30 %; Blood Gas PEEP 5 cm H2O; Blood Gas VT 450 cc
[2016-05-06] MEDS ORDERED: Furosemide 20 MG/2 ML VIAL IVP ONE ×2 (10:58→16:00)
[2016-05-06] MEDS: Albumin 25% 25gram/100mL 25 GM/100 ML IV.SOLN IVC SCH ×4 (11:37→17:28)
--- NOTE | 2016-05-06 14:23 | Rheumatology Consult Note ---
Date of Encounter: 05/06/16 Time of Encounter: 12:00 Rheumatology Assess and Plan (1) Sepsis Current Visit: Yes Status: Acute This patient has Staph in sputum and is acutely ill in the intensive care unit. She is currently covered with antibiotics per ICU team. Currently requiring antibiotics, pressors, mechanical ventilation and stress dosed steroids. Qualifiers: Sepsis type: methicillin susceptible Staphylococcus aureus Qualified Code(s ): A41.01 - Sepsis due to Methicillin susceptible Staphylococcus aureus (2) Rheumatoid arthritis involving multiple sites with positive rheumatoid factor Current Visit: Yes Status: Acute This patient has a history of nodular, erosive rheumatoid arthritis. I am unable to take a history today due to intubation. Exam today somewhat limited due to peripheral edema, but she has many chronic changes from longstanding disease activity and I suspect some synovitis as well. - Currently she is on stress dosed steroids due to acute illness and recent prednisone use and this should help cover disease activity. - Can hold hydroxychloroquine during acute illness and able to resume once more stable. - Unsure who she is following with outside but if needed outpatient followup, she is able to followup with me if needed. (3) Bone erosion Current Visit: Yes Status: Acute Erosions noted on Cspine that could be consistent with rheumatoid arthritis activity. Due to possible risk of cervical subluxation with disease, future intubations should require assessment by anesthesia until able to be further assessed. I discussed this with Dr. Rogers in the ICU. (4) Neutropenia Current Visit: Yes Status: Acute This was normal on admission and previous bloodwork so I suspect may be due to infection. This patient does has a history of longstanding rheumatoid arthritis so Felty's is a possibility given splenomegaly noted on CT scan. Continue to monitor and should be checked as outpatient. If related to RA, corticosteroids would be covering at this time. Qualifiers: Neutropenia type: due to infection Qualified Code(s): D70.3 - Neutropenia due to infection Rheumatology HPI Consult date: 05/06/16 Requesting physician: Cale Rogers Consult reason: Rheumatoid Arthritis Chief complaint: Rheumatoid arthritis History of present illness: Ms. Leon is a 60 year old female with PMH of COPD, CVA, dementia, GERD, HTN and seropositive, nodular rheumatoid arthritis (RF 62, CCP 238) who presents to the hospital with acute respiratory failure found to be septic with a staph infection. Patient is ventilated so much of the history taken from the chart but she was admitted on 05/02 with worsening shortness of breath and hypoxia. She was intubated at [facility]. She has had a positive influenza A, staph found in sputum and bacteremia. She has been started on antibiotics, stress dose steroids and is on pressors in the intensive care unit. She has a history of rheumatoid arthritis though I have no documentation of her disease except that she has been on hydroxychloroquine at her facility and unsure with whom she has been following for her care. In the workup here, she had initially a normal white blood cell count but has dropped since she has been here. She also was found to have some erosions noted at her atlantoaxial joint on cspine CT scan. Per pulmonary notes, fpc steroid use tapered off a month ago. Unable to get further information while intubated. Past Med Surg Social Fam HX - Past Medical History Medical history: arthritis, COPD, CVA, dementia, GERD, hypertension, liver disease, RA Psychiatric history: schizophrenia - Past Surgical History Surgical History: hip replacement, hysterectomy, knee replacement, orthopedic, other (Bilateral patellar replacement), other (IVC filter) - Social History Smoking Status: Former smoker Smokeless Tobacco Status: No Alcohol use: none Drug use: none - Family History Mother History Unknown: Yes Adopted: No Living Status: Father History Unknown: Yes Adopted: No Living Status: Medications and Allergies Acetaminophen [Tylenol] 500 mg PO TID PRN 05/02/16 [History] Calcium Carbonate/Vitamin D3 [Calcium 600-Vit D3 400 Tablet] 1 each PO DAILY 12/08 [History] GuaiFENesin/Dextromethorphan [Tussin Dm Syrup] 5 ml PO Q6H 05/02/16 [History] HYDROcodone/Acet 5/325 mg [[place] 5-325 mg] 1 tab PO Q6H 05/02/16 [History] Hydroxychloroquine [Plaquenuil] 200 mg PO DAILY 05/02/16 [History] Levofloxacin [Levofloxacin] 500 mg PO DAILY 05/02/16 [History] OLANZapine [Olanzapine] 2.5 mg PO QAM 05/02/16 [History] Omeprazole [PriLOSEC] 20 mg PO DAILY 05/02/16 [History] TraMADol [Ultram] 50 mg PO TID 05/02/16 [History] Tramadol HCl [Tramadol HCl] 50 mg PO Q4H PRN 05/02/16 [History] Allergies Penicillins Allergy (Verified 11/03/15 02:06) Hives ROS unobtainable: due to endotracheal tube All Systems Review: A 10-system review of systems was performed and is negative for pertinent findings except as documented above in the HPI. Rheumatology Exam Vital Signs, Last 4 Hours Temp Pulse Resp BP Pulse Ox 05/06/16 13:00 97.8 F 82 17 92/53 100 05/06/16 11:33 97.8 F 05/06/16 11:06 74 15 90/58 99 05/06/16 11:00 72 17 87/54 100 Exam: General - Sedated and intubated, no acute distress HEENT - Conjunctiva clear, ET tube in place, no facial rash, no nasal or oral mucosal lesions/ulcerations Heme/Lymph - No cervical or supraclavicular lymph node enlargement or tenderness. No pallor. Heart - S1S2 regular in rate and rhythm without murmurs, clicks or rubs. No peripheral edema. Radial pulses equal and strong Lungs - On ventilator but anterior breath sounds clear to auscultation bilaterally without wheezes or crackles; no decrease in chest expansion Abdomen - Soft, nontender, nondistended. Unable to palpate any hepmuscle strength 5/5 in all four extremitieatosplenomegaly Skin - No clubbing, nodules, tophi, psoriasis, erythema, petichiae, digital ulcers or other cutaneous ulcers Neurological - In bed and unable to assess muscle strength and gait or proprioception Musculoskeletal - Unable to fully extend fingers, joint exam difficult due to peripheral edema more in left hand but bogginess is noted in MCPs on right where can be assessed, swan neck deformities noted, unable to assess for tenderness. Rheumatology Results 05/06/16 03:45 05/06/16 03:45 All other labs normal. Consult Discharge Plan - Plan Referrals: NO,PCP [Primary Care Provider] -
[2016-05-06] MEDS: FentaNYL (PF) 3,000 MCG in 0.9 % Sodium Chloride 240 ML IVC SCH (17:52)
[2016-05-06] MEDS: Docusate Oral Soln 100 MG/10 ML UDC GTUBE SCH (20:17)
[2016-05-07] MEDS: Insulin LISPRO 300 UNITS/3 ML VIAL SQ SCH ×5 (00:05→16:50)
[2016-05-07] MEDS: Ipratropium/Albuterol Neb 3 ML IH SCH ×5 (00:27→15:19)
[2016-05-07] MEDS: Lacri-Lube 3.5 GM TUBE BOTH EYES SCH ×5 (00:35→15:21)
[2016-05-07] MEDS: Norepinephrine 4 MG in D5% in Water 250 ML IVC SCH ×2 (00:38→05:55)
[2016-05-07] MEDS: FentaNYL (PF) 3,000 MCG in 0.9 % Sodium Chloride 240 ML IVC SCH ×2 (04:13→05:54)
[2016-05-07 04:21] LABS: Mean Platelet Volume 9.2 fL (9.4-12.4); Red Cell Distribution Width 14.7 % (11.5-14.5)
[2016-05-07 04:22] LABS: Hematocrit 26.5 % (35.3-44.9); Hemoglobin 8.3 g/dL (11.5-15.4); Lymphocytes # 0.4 K/mcL (0.6-4.6); Lymphocytes % 18.3 %; Mean Corpuscular HGB Conc 31.3 g/dL (31.6-35.5); Mean Corpuscular Hemoglobin 28.4 pg (28.0-33.3); Mean Corpuscular Volume 90.8 fL (83.0-100.0); Monocytes # 0.3 K/mcL (0.0-1.3); Monocytes % 15.7 %; Neutrophils # 1.3 K/mcL (1.6-8.9); Platelet Count 153 K/mcL (140-400); Red Blood Count 2.92 M/mcL (3.82-4.97)
[2016-05-07 04:26] LABS: BUN/Creatinine Ratio 48 (6-26); Blood Urea Nitrogen 22 mg/dL (7-20); Calcium 8.2 mg/dL (8.6-10.8); Carbon Dioxide 20 mEq/L (19-29); Chloride 114 mEq/L (98-109); Glucose 129 mg/dL (70-99); Osmolality,Calculated 297 (280-300); Potassium 4.5 mEq/L (3.5-4.5); Sodium 141 mEq/L (136-145); eGFR For African Americans > 60 (> 60); eGFR For Non-African Americans > 60 (> 60)
[2016-05-07 04:50] LABS: Platelet Estimate Normal (Normal); Smudge Cells Present (Not Present)
[2016-05-07 05:51] LABS: ABG Base Excess -1.3 mEq/L (-2.0 to 3.0); ABG HCO3 24.3 mEQ/L (21-27); ABG Oxygen Saturation 99 % (95-98); ABG PCO2 44 mmHg (35-45); ABG PH 7.35 pH Units (7.32-7.45); ABG PO2 122 mmHg (85-104); ABG TCO2 25.7 mEq/L (20-26)
[2016-05-07] MEDS: Vancomycin 1,000 MG in D5% in Water 250 ML IVPB SCH (05:54)
[2016-05-07 05:57] LABS: Blood Gas FiO2 30 %; Blood Gas PEEP 5 cm H2O; Blood Gas Respiration Rate 12; Blood Gas VT 450 cc
[2016-05-07] MEDS: Dexmedetomidine HCl 400 MCG/100 ML MLS IVC SCH ×2 (06:32→16:46)
[2016-05-07] MEDS: OLANZapine 5 MG TAB.RAPDIS PO SCH (07:35)
[2016-05-07] MEDS: *HR* Heparin 5,000 UNIT/ML VIAL SQ SCH ×2 (07:36→16:49)
[2016-05-07] MEDS: Pantoprazole 40 MG VIAL IVPB SCH (07:36)
[2016-05-07] MEDS: Chlorhexidine Rinse 15 ML MOUTHWASH MM SCH (07:36)
[2016-05-07] MEDS: Hydrocortisone Sodium Succ 100 MG/2 ML VIAL IVP SCH (07:36)
[2016-05-07] MEDS: Docusate Oral Soln 100 MG/10 ML UDC GTUBE SCH (07:36)
--- NOTE | 2016-05-07 09:04 | Pulmonology Progress Note ---
<Cale Rogers - Last Filed: 05/07/16 17:18> Date of Encounter: 05/07/16 Time of Encounter: 07:50 Assessment and Plan (1) Acute respiratory distress syndrome (ARDS) Status: Acute Patient was brought in from [facility] with acute respiratory distress. CXR revealed bilateral hazy parenchymal disease predominantly in the perihilar regions favoring edema. XR today suggestive of worsening right basilar opacity. Influenza A positive, blood culture revealed Staph epi contamination, sputum cultures revealed MSSA. Echo revealed EF of 45-50% Vent settings at Tv 450mL, rate 12, FiO2 30%, and PEEP 5. ABG this morning pH 7.35, pCO2 44, pO2 122, and 99%. Acute respiratory failure secondary to ARDS due to possible Staph pneumonia, influenza A, and MRSA bacteremia. Continue with Vancomycin (d5) and Oseltamavir (d5). Discontinuing Oseltamavir after today. Continue with duonebs q4h Continue ventilator support. Requiring continuation of versed, propofol, and precedex for sedation. Discontinue Levophed. Working with RN (Geo) to arrange family meeting to discuss care plan. Tentative plan to extubate to CPAP pending family discussion. (2) Acute respiratory failure Status: Acute Continue per plan in assessment above. Qualifiers: Respiratory failure complication: hypoxia and hypercapnia Qualified Code(s) : J96.01 - Acute respiratory failure with hypoxia; J96.02 - Acute respiratory failure with hypercapnia (3) Pneumonia Status: Acute [facility] due to [facility] and schizophrenia. MSSA sputum culture. Continue with Vancomycin (d5)-discuss de-escalation. Qualifiers: Pneumonia type: due to methicillin-resistant Staphylococcus aureus (MRSA) Laterality: right Lung location: lower lobe of lung Qualified Code(s): J15.212 - Pneumonia due to Methicillin resistant Staphylococcus aureus (4) Influenza A Status: Acute Continue with Oseltamavir (d5), consider discontinuing after today. (5) Sepsis Status: Acute Influenza A pneumonia, MRSA pneumonia; blood culture likely contaminated with Staph epi. Leukocytopenia of 2.0 on morning labs. Continue with Vancomycin (d5) and Oseltamavir (d5-discontinue after today). Qualifiers: Sepsis type: methicillin susceptible Staphylococcus aureus Qualified Code(s ): A41.01 - Sepsis due to Methicillin susceptible Staphylococcus aureus (6) Back pain Status: Acute Patient has several stress ulcers over back and surgical scar. CT C/T/L spine with contrast ordered -negative for epidural abscess. Did show progressing periauricular erosions and joint space narrowing. Qualifiers: Back pain location: back pain in unspecified location Chronicity: chronic Back pain laterality: unspecified Qualified Code(s): M54.9 - Dorsalgia, unspecified; G89.29 - Other chronic pain (7) Rheumatoid arthritis involving both hands with positive rheumatoid factor Status: Chronic Continue pain management. Home med- hydroxychloroquine, currently held. History of alf steroid use, tapered off about 1 month ago. Random cortisol returned low normal at 3.5 Hydrocortisone q8h ordered. Rheumatology consulted, consider Felty's Syndrome to follow up as outpatient ( diagnosis can't be concluded with current infection). Splenomegaly, RA, neutropenia. (8) DVT prophylaxis Status: Acute heparin for dvt ppx (9) Discussion about advance care planning held with family member Status: Acute Patient unable to express desires for care as she is currently intubated, in addition has history of dementia and schizophrenia. No known advance directives or living will. Family discussion held at 14:45 on 05/07/16 with Ms. Leon's two daughters present, in addition Dr. Shen, Dr. Rogers, Clovis Carmichael RN, and Viviana RN. Family states they do not know the wishes of the patient. Care options discussed with family for approx 20 mins, included plans to continue or discontinue mechancial ventilator and code status. Daughters were in agreement that they wish to extubate patient at this time if she is making efforts to breath on her own when sedation is reduced. They do not believe patient would be a good candidate for a tracheotomy and they do not wish to reintubate if patient has respiratory failure. Daughters in agreement on a plan of care if patient worsens after extubation, agreeing to proceed with DNR-CCA-DNI status after completed extubated as they do not feel she would want/nor handle chest compressions or defibrillation. They(daughters) expressed they want to continue medical care for sepsis/pneumonia in addition keeping her comfortable if she begins to decline. Daughters both express understanding that with these measures there is a possibility that Ms. Leon could go into cardiac or pulmonary arrest and pass. They plan to stay near by during extubation. They do not wish to involve palliative care service at this time. Subjective Principal diagnosis: Acute Resp Failure, Influenza A, MRSA bacteremia, Sepsis Interval history: Concern for aspiration last night. CXR showed worsening R basilar opacity. Currently in soft restraints and sedated, still on mechanical ventilation. Afebrile. Objective PUL Vital signs: Last Vital Signs Temp 97.5 F L 05/07/16 08:30 Pulse 69 05/07/16 08:00 Resp 12 05/07/16 08:00 BP 83/53 05/07/16 08:00 Pulse Ox 100 05/07/16 08:00 General appearance: no acute distress Eyes: nonicteric ENT: oropharynx moist Neck: supple Effort: other (mechanical ventilation) Auscultation: bilateral: clear Cardiovascular: regular rate and rhythm Gastrointestinal: normoactive bowel sounds, soft, non-tender, non-distended Integumentary: decubitus ulcer (two ulceration on coccyx/buttock (stage 1 and 2 respectively), wound on right ankle (stage 2) ) Extremities: no cyanosis, other (capillary refill <2 sec) Musculoskeletal: other (RA changes to feet, specifically toes bilaterally.) unable to assess due to mental status (and sedation) Ventilator Settings Ventilator Settings: Ventilator Settings, Last 8 Hours Ventilator Mode VC+ Ventilator Mode VC+ Ventilator Mode VC+ Ventilator Mode VC+ Ventilator Mode VC+ Ventilator Mode VC+ Ventilator Mode VC+ Ventilator Mode VC+ Ventilator Mode VC+ Ventilator Tidal Volume 450 Setting Ventilator Tidal Volume 450 Setting Ventilator Tidal Volume 450 Setting Ventilator Tidal Volume 450 Setting Ventilator Tidal Volume 450 Setting Ventilator Tidal Volume 450 Setting Ventilator Tidal Volume 450 Setting Ventilator Tidal Volume 450 Setting Ventilator Tidal Volume 450 Setting Ventilator Respiratory Rate 12 Setting Ventilator Respiratory Rate 12 Setting Ventilator Respiratory Rate 12 Setting Ventilator Respiratory Rate 12 Setting Ventilator Respiratory Rate 12 Setting Ventilator Respiratory Rate 12 Setting Ventilator Respiratory Rate 12 Setting Ventilator Respiratory Rate 12 Setting Ventilator Respiratory Rate 12 Setting Actual Respiratory Rate 13 Actual Respiratory Rate 15 Actual Respiratory Rate 13 Actual Respiratory Rate 15 Actual Respiratory Rate 13 Actual Respiratory Rate 13 Actual Respiratory Rate 15 Actual Respiratory Rate 15 Positive End Expiratory 5 Pressure Positive End Expiratory 5 Pressure Positive End Expiratory 5 Pressure Positive End Expiratory 5 Pressure Positive End Expiratory 5 Pressure Positive End Expiratory 5 Pressure Positive End Expiratory 5 Pressure Positive End Expiratory 5 Pressure Positive End Expiratory 5 Pressure Peak Inspiratory Airway 22 Pressure Peak Inspiratory Airway 23 Pressure Peak Inspiratory Airway 18 Pressure Peak Inspiratory Airway 25 Pressure Peak Inspiratory Airway 22 Pressure Peak Inspiratory Airway 23 Pressure Peak Inspiratory Airway 25 Pressure Peak Inspiratory Airway 24 Pressure Results - Laboratory Findings CBC and BMP: 05/07/16 03:50 05/07/16 03:50 ABG ABG pH 7.35 pH Units (7.32-7.45) 05/07/16 05:34 ABG pCO2 44 mmHg (35-45) 05/07/16 05:34 ABG pO2 122 mmHg (85-104) H 05/07/16 05:34 ABG O2 Saturation 99 % (95-98) H 05/07/16 05:34 PT/INR, D-dimer PT 12.3 Seconds (9.4-12.1) H 05/02/16 17:44 Abnormal lab findings: Abnormal lab results WBC 2.0 K/mcL (4.3-11.1) L 05/07/16 03:50 RBC 2.92 M/mcL (3.82-4.97) L 05/07/16 03:50 Hgb 8.3 g/dL (11.5-15.4) L 05/07/16 03:50 Hct 26.5 % (35.3-44.9) L 05/07/16 03:50 MCHC 31.3 g/dL (31.6-35.5) L 05/07/16 03:50 RDW 14.7 % (11.5-14.5) H 05/07/16 03:50 MPV 9.2 fL (9.4-12.4) L 05/07/16 03:50 Band Neutrophils % 22.0 % (0-4) H 05/04/16 06:43 Metamyelocytes % 1.0 % (0) H 05/02/16 18:08 Myelocytes % 1.0 % (0) H 05/02/16 18:08 Promyelocytes % 2.0 % (0) H 05/04/16 03:30 Neutrophils # 1.3 K/mcL (1.6-8.9) L 05/07/16 03:50 Lymphocytes # 0.4 K/mcL (0.6-4.6) L 05/07/16 03:50 Smudge Cells Present (Not Present) A 05/07/16 03:50 PT 12.3 Seconds (9.4-12.1) H 05/02/16 17:44 APTT 46.7 Seconds (26.0-36.0) H 05/02/16 17:44 ABG pO2 122 mmHg (85-104) H 05/07/16 05:34 ABG O2 Saturation 99 % (95-98) H 05/07/16 05:34 VBG pH 7.07 pH Units (7.32-7.42) L* 05/02/16 18:00 VBG pCO2 67 mmHg (41-51) H 05/02/16 18:00 VBG pO2 66 mmHg (25-40) H 05/02/16 18:00 VBG HCO3 19.4 mEq/L (21-27) L 05/02/16 18:00 Chloride 114 mEq/L (98-109) H 05/07/16 03:50 BUN 22 mg/dL (7-20) H 05/07/16 03:50 Creatinine 0.46 mg/dL (0.57-1.11) L 05/07/16 03:50 BUN/Creatinine Ratio 48 (6-26) H 05/07/16 03:50 Glucose 129 mg/dL (70-99) H 05/07/16 03:50 POC Glucose 117 (58-89) H 05/07/16 00:01 Calcium 8.2 mg/dL (8.6-10.8) L 05/07/16 03:50 Phosphorus 5.1 mg/dL (2.3-4.7) H 05/02/16 17:44 Total Bilirubin 2.1 mg/dL (0.2-1.2) H 05/03/16 05:15 Direct Bilirubin 1.7 mg/dL (0.0-0.5) H 05/02/16 17:44 AST 43 Units/L (5-34) H 05/03/16 05:15 Alkaline Phosphatase 1115 Units/L (38-126) H 05/03/16 05:15 C-Reactive Protein 53 mg/L (Less than 5) H 05/02/16 17:44 Albumin 2.1 g/dL (3.5-5.0) L 05/03/16 05:15 Globulin 5.1 g/dL (2.4-3.5) H 05/03/16 05:15 Albumin/Globulin Ratio 0.4 (1.1-2.2) L 05/03/16 05:15 Procalcitonin 0.16 ng/mL (<=0.10) H 05/02/16 17:44 Urine Clarity Turbid (Clear) A 05/02/16 17:25 Urine Protein 100 mg/dL (Neg-Trace) H 05/02/16 17:25 Urine Blood Large (Negative) H 05/02/16 17:25 Urine Bilirubin Small (Negative) H 05/02/16 17:25 Urine Microscopic RBC TNTC per hpf (0-3) H 05/02/16 17:25 Urine Microscopic WBC 3-5 per hpf (0-3) H 05/02/16 17:25 Ur Squamous Epith Cells Many per lpf (None-Few) H 05/02/16 17:25 Hyaline Casts Many per lpf (None-Few) H 05/02/16 17:25 Influenza A (H3) PCR DETECTED (Not Detect) A 05/03/16 10:42 Staphylococcus sp PCR DETECTED (Not Detect) A 05/02/16 18:08 MRS (TEM-PCR) DETECTED (Not Detect) A 05/02/16 18:08 - Microbiology Findings Microbiology Findings: Microbiology, Last 48 Hours 05/03/16 04:40 Sputum Culture - Final Sputum Staphylococcus aureus - Clinical Findings Intake & Output: Intake & Output 05/06/16 05/07/16 05/07/16 23:59 07:59 15:59 Intake Total 1641 / 1641 552 / 552 Output Total 325 / 325 375 / 375 125 / 125 Balance 1316 / 1316 177 / 177 -125 / -125 Weight 58.6 kg Consult Discharge Plan - Plan Referrals: NO,PCP [Primary Care Provider] - <Marina Shen - Last Filed: 05/07/16 20:41> Objective PUL Vital signs: Last Vital Signs Temp 98.2 F 05/07/16 15:20 Pulse 73 05/07/16 15:08 Resp 19 05/07/16 16:56 BP 145/102 05/07/16 16:56 Pulse Ox 86 L 05/07/16 16:56 Ventilator Settings Ventilator Settings: Ventilator Settings, Last 8 Hours Ventilator Mode CPAP Ventilator Mode VC+ Ventilator Tidal Volume 450 Setting Ventilator Respiratory Rate 12 Setting Actual Respiratory Rate 16 Actual Respiratory Rate 16 Positive End Expiratory 5 Pressure Positive End Expiratory 5 Pressure Peak Inspiratory Airway 15 Pressure Peak Inspiratory Airway 18 Pressure Results - Laboratory Findings CBC and BMP: 05/07/16 03:50 05/07/16 03:50 ABG ABG pH 7.35 pH Units (7.32-7.45) 05/07/16 05:34 ABG pCO2 44 mmHg (35-45) 05/07/16 05:34 ABG pO2 122 mmHg (85-104) H 05/07/16 05:34 ABG O2 Saturation 99 % (95-98) H 05/07/16 05:34 PT/INR, D-dimer PT 12.3 Seconds (9.4-12.1) H 05/02/16 17:44 Abnormal lab findings: Abnormal lab results WBC 2.0 K/mcL (4.3-11.1) L 05/07/16 03:50 RBC 2.92 M/mcL (3.82-4.97) L 05/07/16 03:50 Hgb 8.3 g/dL (11.5-15.4) L 05/07/16 03:50 Hct 26.5 % (35.3-44.9) L 05/07/16 03:50 MCHC 31.3 g/dL (31.6-35.5) L 05/07/16 03:50 RDW 14.7 % (11.5-14.5) H 05/07/16 03:50 MPV 9.2 fL (9.4-12.4) L 05/07/16 03:50 Band Neutrophils % 22.0 % (0-4) H 05/04/16 06:43 Metamyelocytes % 1.0 % (0) H 05/02/16 18:08 Myelocytes % 1.0 % (0) H 05/02/16 18:08 Promyelocytes % 2.0 % (0) H 05/04/16 03:30 Neutrophils # 1.3 K/mcL (1.6-8.9) L 05/07/16 03:50 Lymphocytes # 0.4 K/mcL (0.6-4.6) L 05/07/16 03:50 Smudge Cells Present (Not Present) A 05/07/16 03:50 PT 12.3 Seconds (9.4-12.1) H 05/02/16 17:44 APTT 46.7 Seconds (26.0-36.0) H 05/02/16 17:44 ABG pO2 122 mmHg (85-104) H 05/07/16 05:34 ABG O2 Saturation 99 % (95-98) H 05/07/16 05:34 VBG pH 7.07 pH Units (7.32-7.42) L* 05/02/16 18:00 VBG pCO2 67 mmHg (41-51) H 05/02/16 18:00 VBG pO2 66 mmHg (25-40) H 05/02/16 18:00 VBG HCO3 19.4 mEq/L (21-27) L 05/02/16 18:00 Chloride 114 mEq/L (98-109) H 05/07/16 03:50 BUN 22 mg/dL (7-20) H 05/07/16 03:50 Creatinine 0.46 mg/dL (0.57-1.11) L 05/07/16 03:50 BUN/Creatinine Ratio 48 (6-26) H 05/07/16 03:50 Glucose 129 mg/dL (70-99) H 05/07/16 03:50 POC Glucose 117 (58-89) H 05/07/16 00:01 Calcium 8.2 mg/dL (8.6-10.8) L 05/07/16 03:50 Phosphorus 5.1 mg/dL (2.3-4.7) H 05/02/16 17:44 Total Bilirubin 2.1 mg/dL (0.2-1.2) H 05/03/16 05:15 Direct Bilirubin 1.7 mg/dL (0.0-0.5) H 05/02/16 17:44 AST 43 Units/L (5-34) H 05/03/16 05:15 Alkaline Phosphatase 1115 Units/L (38-126) H 05/03/16 05:15 C-Reactive Protein 53 mg/L (Less than 5) H 05/02/16 17:44 Albumin 2.1 g/dL (3.5-5.0) L 05/03/16 05:15 Globulin 5.1 g/dL (2.4-3.5) H 05/03/16 05:15 Albumin/Globulin Ratio 0.4 (1.1-2.2) L 05/03/16 05:15 Procalcitonin 0.16 ng/mL (<=0.10) H 05/02/16 17:44 Urine Clarity Turbid (Clear) A 05/02/16 17:25 Urine Protein 100 mg/dL (Neg-Trace) H 05/02/16 17:25 Urine Blood Large (Negative) H 05/02/16 17:25 Urine Bilirubin Small (Negative) H 05/02/16 17:25 Urine Microscopic RBC TNTC per hpf (0-3) H 05/02/16 17:25 Urine Microscopic WBC 3-5 per hpf (0-3) H 05/02/16 17:25 Ur Squamous Epith Cells Many per lpf (None-Few) H 05/02/16 17:25 Hyaline Casts Many per lpf (None-Few) H 05/02/16 17:25 Influenza A (H3) PCR DETECTED (Not Detect) A 05/03/16 10:42 Staphylococcus sp PCR DETECTED (Not Detect) A 05/02/16 18:08 MRS (TEM-PCR) DETECTED (Not Detect) A 05/02/16 18:08 - Microbiology Findings Microbiology Findings: Microbiology, Last 48 Hours 05/03/16 04:40 Sputum Culture - Final Sputum Staphylococcus aureus - Clinical Findings Intake & Output: Intake & Output 05/07/16 05/07/16 05/07/16 07:59 15:59 23:59 Intake Total 802 / 802 367 / 367 100 / 100 Output Total 375 / 375 525 / 525 Balance 427 / 427 -158 / -158 100 / 100 Weight 58.6 kg - Attending Attestation I examined this patient and my medical decision-making was reviewed with the ASSEMBLER [employer]PILL[employer] SPIDER/PA/Advanced Practice Nurse/Resident Physician. I agree with the documented findings, disposition and treatment plan as described except to the extent set forth below. Patient seen and examined. Labs, radiology, chart personally reviewed. Agree with resident's history and physical, assessment, plan with following comments: FRANCHISE SALES REPRESENTATIVE: Patient follows simple commands before extubation and patient was requiring significant amount of sedatives and narcotics, Pulmonary: Acceptable oxygenation and ventilation. Patient has significant underlying psychiatric disease and not able to do a reliable SBT/CPAP trial and for that reason I did meet with 2 daughters to make decision for her. I met with family with RNs and resident. I did explained to them about possibility that her condition could deteriorate after extubation and we discussed reintubation or comfort care. Daughters decided not to reintubate if her condition worsen. Patient had acceptable NIF and she was awake enough for extubation. Unfortunately after extubation she had difficulty to breath and respiratory distress with stridor which was treated with resimic epi and bronchodilators as well as BiPAP then I changed it to CPAP and AVAPS with some improvement, but her SPO2 worsened again in the upper 50% and 60%. I did explained to daughters at bedside about reintubation, but the didn't want anything, but to keep patient comfortable. She was treated with sedatives and eventually they wanted to remove BiPAP knowing she will and that is what happened after removing the mask. I stayed entire time with patient before extubation and after extubation at the bedside. Nurse and RT asked me to come to bedside before extubation (refer to residents note for more detail and the event note) Cardiovascular: unstable, on-off on Levophed GI: Nutrition per dietary and GI prophylaxis per routine Heme: DVT prophylaxis per routine ID: Continue antibiotics and plan to de-escalation Renal; urine out put and renal funtion reviewed Endorcine: blood glucose is monitored Lines: all lines checked and no evidence of infections Skin: skin care to prevent pressure ulcers per nursing routine care I spent 80 min of Critical Care time with this patient. It involved decision making of high complexity to assess, manipulate, and support vital organ system failure and/or to prevent further life threatening deterioration of the patient' s condition. The time involved in the performance of separately reportable procedures was not counted toward critical care time.
[2016-05-07] MEDS ORDERED: Racepinephrine Neb 0.5 ML VIAL IH ONE ×3 (16:13→16:15)
[2016-05-07] MEDS ORDERED: Ipratropium/Albuterol Neb 3 ML IH ONE ×2 (16:24)
[2016-05-07] MEDS ORDERED: Ipratropium/Albuterol Neb 3 ML ONE (16:28)
[2016-05-07] MEDS ORDERED: *HR* Midazolam HCl 2 MG/2 ML VIAL ONE (16:32)
[2016-05-07] MEDS ORDERED: *HR* Midazolam HCl 2 MG/2 ML VIAL IV ONE (16:35)
[2016-05-07] MEDS ORDERED: Dexmedetomidine HCl 400 MCG/100 ML MLS IVC SCH (16:36)
[2016-05-07] MEDS ORDERED: Dexamethasone 4 MG/ML VIAL IVP ONE (16:37)
[2016-05-07] MEDS ORDERED: Dexmedetomidine HCl 400 MCG/100 ML MLS IVC ONE (16:41)
[2016-05-07] MEDS ORDERED: *HR* Midazolam HCl 2 MG/2 ML VIAL IVP SCH (16:45)
--- NOTE | 2016-05-07 17:42 | Event Note ---
<Cale Rogers - Last Filed: 05/07/16 17:20> Date of Encounter: 05/07/16 Time of Encounter: 17:20 Patient assessed and extubated at approx 16:00 per discussion with patient's daughter. Upon extubation patient developed stridor with initial O2 saturation decline into the 60s. Patient was started on CPAP and alternating racemic epi and duonebs initiated. Patient appeared anxious, Versed and Precedex used to comfort Ms. Leon. At this time patient's O2 saturation improved to 88% for a short period before beginning to decline once again. Daughters were present at this time, deciding to remove CPAP at approx 17:15. Patient's saturation continued to drop into the 50s with HR originally 106 and quickly slowly to the 50s, then below, before stopping completely. Time of 17:27. <Marina Shen - Last Filed: 05/07/16 21:35> Agree with Dr. Rogers. Please refer to the progress note as well for more information.
[2016-05-07] MEDS ORDERED: Aminoglycoside Consult 1 EACH MC ONE (19:14)
[2016-05-07 19:55] VITALS: BP 145/102
--- NOTE | 2016-05-08 07:14 | Death Note ---
<Cale Rogers - Last Filed: 05/08/16 08:24> Discharge Sum: Summary - Date and Time Date of admission: 05/02/16 18:36 Date of : 05/07/16 Time of : 17:27 - Summary Details: Ms. Leon was a 60-year-old female with PMH significant for COPD, CVA, dementia , schizophrenia, GERD, hypertension, liver disease, RA and a resident of [facility]. Per the ER note, was diagnosed to have pneumonia earlier in the day and started on Levaquin. According to EMS report she had a relatively rapid decompensation of her respiratory function and on checking her SPO2 it was 70%. In the ER, She was intubated and started on mechanical ventilation. She was given Levaquin, vancomycin, and cefepime for suspected pneumonia. She is admitted to intensive care unit, for further management. Attempted to extubate around 10am on 05/05/16, after about 15 minutes patient became very agitated and was saying she was unable to breathe and was increasingly more uncomfortable. She had inspiratory stridor and was using accessory muscles to breathe, though was O2 saturation noted to be in the 90s on room air. Patient's sats eventually started dropping in the 80s, ventimask was unable to bring up sats, and decision to intubate was made. Patient reintubated. Patient was unable to express desires for care as she was intubated, in addition had history of dementia and schizophrenia. No known advance directives or living will. Family discussion held at 14:45 on 05/07/16 with Ms. Leon's two daughters present, in addition Dr. Shen, Dr. Rogers, Clovis Carmichael RN, and Viviana RN. Family stated they did not know the wishes of the patient. Care options discussed with family for approx 20 mins, included plans to continue or discontinue mechancial ventilator and code status. Daughters were in agreement that they wished to extubate patient at that time if she was making efforts to breath on her own when sedation was reduced. They did not believe patient would be a good candidate for a tracheotomy and they did not wish to reintubate if patient had respiratory failure. Daughters were in agreement on a plan of care if patient worsened after extubation, agreeing to proceed with [id number] status after completed extubation as they did not feel she would want/nor handle chest compressions or defibrillation. They(daughters) expressed they wanted to continue medical care for sepsis/pneumonia in addition keeping her comfortable if she began to decline. Daughters both expressed understanding that with these measures there is a possibility that Ms. Leon could go into cardiac or pulmonary arrest and pass. They planed to stay near by during extubation. Patient was assessed and extubated at approx 16:00 on 05/07/16 per discussion with patient's daughter. Upon extubation patient developed stridor with initial O2 saturation decline into the 60s. Patient was started on CPAP and alternating racemic epi and duonebs initiated. Patient appeared anxious, Versed and Precedex used to comfort Ms. Leon. At this time patient's O2 saturation improved to 88% for a short period before beginning to decline once again. Daughters were present at this time, deciding to remove CPAP at approx 17:15. Patient's saturation continued to drop into the 50s with HR originally 106 and quickly slowly to the 50s, then below, before stopping completely. Time of 17:27. - Additional Data Confirmation of as documented by pronouncing clinician: no pulse, no respirations, no heart sounds Family: at bedside Attending/PCP notified?: Yes Attending physician: Marina Shen M.D. Was code activated?: No Autopsy requested?: No driver's license examiner notified?: No Organ bank notified?: No Advance directives: No Hospice patient?: No Discharge Sum: Diag - PCOD Probable Cause of : Acute respiratory failure - Contributing Factors (1) Acute respiratory distress syndrome (ARDS) Patient could not maintain O2 saturation. (2) Acute respiratory failure Not able to maintain O2 saturation without mechanical ventilation. (3) Pneumonia Likely cause of patient's respiratory distress and hypoxia. (4) Influenza A Contributing to patient's overall weakness. (9) Discussion about advance care planning held with family member Patient extubated and code status changed to [id number] per family care plan. Discharge Sum: Prov - Provider Primary care physician: PCP NO Admitting clinician: Vandana Herman Attending physician on admission: Chris Camargo Consults: 05/02/16 22:19 Consult to Medical Office Assistant Instructor [CONS] Routine Reason for SW Consult: pt will need placement after hospital stay/ mental health issues 05/02/16 23:15 Consult to Pulmonology [CONS] Routine Consulting Provider: [facility] [place] Reason for Consult: Acute respiratory failure; vent management Call Completed: No 05/04/16 10:58 consult to lawn and tree service spray supervisor [Consult to Nutrition] [CONS] Routine Comment: Consulting Provider: NUTRITION Reason for Dietary Consult: TF Start and Manage 05/06/16 11:05 Consult to Physician [CONS] Routine Consulting Provider: Rashel Aguilar Reason for Consult: Hx of RA- Hydroxychloroquine (home med), pain control - appreciate input Time Notified: 11:24 Call Completed: Yes Pronouncing clinician: Marina Shen <Marina Shen - Last Filed: 05/08/16 16:31> Discharge Sum: Summary - Date and Time Date of admission: 05/02/16 18:36 - Additional Data Attending physician: Mars Fernandez MD Discharge Sum: Prov - Provider Primary care physician: PCP NO Consults: 05/02/16 22:19 Consult to Medical Office Assistant Instructor [CONS] Routine Reason for SW Consult: pt will need placement after hospital stay/ mental health issues 05/02/16 23:15 Consult to Pulmonology [CONS] Routine Consulting Provider: [facility] [place] Reason for Consult: Acute respiratory failure; vent management Call Completed: No 05/04/16 10:58 consult to lawn and tree service spray supervisor [Consult to Nutrition] [CONS] Routine Comment: Consulting Provider: NUTRITION Reason for Dietary Consult: TF Start and Manage 05/06/16 11:05 Consult to Physician [CONS] Routine Consulting Provider: Rashel Aguilar Reason for Consult: Hx of RA- Hydroxychloroquine (home med), pain control - appreciate input Time Notified: 11:24 Call Completed: Yes - Attending Attestation I examined this patient and my medical decision-making was reviewed with the SPECIAL FORCES ENGINEER SERGEANT/PA/Advanced Practice Nurse/Resident Physician. I agree with the documented findings, disposition and treatment plan as described except to the extent set forth below. Patient with multiple medical problems and was extubated after that she had respiratory distress and family decided to keep her comfortable. Patient after extubation. Patient with septic shock Acute hypoxic respiratory failure Associated Pneumonia Rheumatoid arthritis And multiple other medical problems mainly psychiatric
== END 2016-05-07 19:15 | disposition expired | DRG 720 ==
LOC: EMEROO 16:53 → ICNU 18:36
PROVIDERS: ADMIT Family Medicine; ATTEND Family Medicine